=== PATIENT | female | born 1935 | race Caucasian/White ===

== ENCOUNTER 2023-10-19 12:57 | Emergency (ER) | payer OTHER, SELFPAY ==
[2023-10-19 13:00] VITALS: BP 118/62
[2023-10-19] MEDS: NSS 500 IV (14:43)
[2023-10-19 14:57] LABS: % Basophils 1.2 % (0-2); % Eosinophils 1.2 % (0-6); % Immature Granulocytes 0.2 % (0-0.5); % Lymphocytes 23.4 % (20.5-51.1); % Monocytes 8.3 % (1.7-9.3); % Neutrophils 65.7 % (42.2-75.2); Absolute Basophils 0.1 10^3/uL (0-0.2); Absolute Eosinophils 0.1 10^3/uL (0-0.7); Absolute Lymphocytes 1.4 10^3/uL (1.2-3.4); Absolute Monocytes 0.5 10^3/uL (0.1-0.6); Absolute Neutrophils 3.9 10^3/uL (1.4-6.5); Hematocrit 34.8 % (37.0-47.0); Mean Corp Hgb Conc. 34.5 g/dL (33.0-37.0); Mean Corpuscular Hgb 28.3 pg (27.0-31.0); Mean Corpuscular Volume 82.1 fL (81.0-99.0); Mean Platelet Volume 11.9 fL (7.4-10.4); Nucleated Red Blood Cells % 0 %; Platelet Count 208 10^3/uL (130-400); Red Blood Cell Count 4.24 10^6/uL (4.20-5.40); Red Cell Dist. Width 14.9 % (11.5-14.5); White Blood Cell Count 5.9 10^3/uL (4.8-10.8)
[2023-10-19 15:33] LABS: ALT (SGPT) 13 U/L (0-35); AST (SGOT) 29 U/L (14-36); Albumin 3.8 g/dl (3.5-5.0); Alkaline Phosphatase 93 U/L (38-126); Blood Urea Nitrogen 11 mg/dl (7-17); Calcium 9.3 mg/dl (8.4-10.2); Carbon Dioxide 23 mmol/L (22-30); Chloride 107 mmol/L (98-107); Glucose 106 mg/dl (70-99); Potassium 3.3 mmol/L (3.5-5.1); Sodium 139 mmol/L (135-145); eGFR > 60.00
--- NOTE | 2023-10-19 15:39 | ED.GENMED ---
History of Present Illness
General
Chief Complaint: Abdominal Symptoms
Source: patient
Exam Limitations: none
Time Seen by Provider: 10/19/23 14:13
Travel History
Have you had any contact with someone who has COVID-19?: No
Do you have any symptoms of coronavirus? Fever > 100 degrees, chills, cough, shortness of breath, sore throat, loss of taste or smell, muscle aches, or headache?: No
History of Present Illness
History of Present Illness:
Diarrhea for 3 to 4 days. No blood or mucus. No abdominal pain no fever. No unusual travel history or food ingestion. No recent antibiotics. No one else is ill at home. No diarrhea today. She states it only occurs when she eats.
Past History
Past History
ED Past Medical History: Asthma, CAD, Fibromyalgia, GERD, HTN, Hypercholesterolemia and [place]
ED Past Surgical History: Cardiac (Angioplasty with stent ), Cholecystectomy and Gynecological (Hysterectomy and prior tubal ligation )
Social History
Tobacco: Former smoker
Alcohol: None
Living: with family
Employment: Retired
Family History
Family History: Hypertension
Review of Systems
Review of Systems
All Other Systems: Not applicable
Constitutional: Denies fever
Respiratory: Reports no symptoms
Cardiac: Reports no symptoms
Phy Exam
Physical Exam
Physical Exam:
GENERAL: Alert and oriented in no apparent distress
EYE: Orbits normal.
NECK: Supple
CARDIAC: Regular rate and rhythm without any obvious murmurs.
LUNGS: Clear breath sounds,normal
ABDOMEN: Soft, without focal tenderness or distention
NEUROLOGICAL: Alert and oriented , grossly non-focal
SKIN: Warm and dry, no rash or lesion, no discoloration, skin intact.
MUSCULOSKELETAL: No edema,no deformity.Good color
PSYCH: Normal and appropriate interaction.
Course
Orders/Labs/Results
Orders:
Orders
10/19/23 14:30
CBC/With Diff [Complete Blood Count/With Diff] Urgent
10/19/23 14:33
STOOL [C difficile Antigen & Toxins] Urgent
ELVA Source: Feces/Stool
Specimen Description:
Stool Culture Urgent
ELVA Source: Feces/Stool
Specimen Description:
0.9% Sodium Chloride 500 ml [Nss] 500 ml IV BOLUS
10/19/23 15:10
Comprehensive Metabolic Panel Urgent
10/19/23 15:39
Potassium Chloride 10% Elixir [KCl Elixir] 40 meq PO NOW STA
Abnormal Lab Results
10/19/23 10/19/23
14:30 15:10
Hct 34.8 L %
(37.0-47.0)
RDW 14.9 H %
(11.5-14.5)
MPV 11.9 H fL
(7.4-10.4)
Potassium 3.3 L mmol/L
(3.5-5.1)
Glucose 106 H mg/dl
(70-99)
10/19/23 14:30
10/19/23 15:10
Vital Signs
Initial and Last Documented VS:
Initial Vital Signs
Temp Pulse Resp BP Pulse Ox
98.0 F 71 16 118/62 98
10/19/23 13:00 10/19/23 13:00 10/19/23 13:00 10/19/23 13:00 10/19/23 13:00
Last Documented Vital Signs
Temp Pulse Resp BP Pulse Ox
98.0 F 71 16 118/62 98
10/19/23 13:00 10/19/23 13:00 10/19/23 13:00 10/19/23 13:00 10/19/23 14:58
*Pulse Oximetry
Patient hypoxic: no
*Critical Care Note
Total Time (30-74mins, 75-104mins- exclusive of procedures): Not Applicable
Data Reviewed
Review of Other/Old Records Reveals: Labs and Testing
Update Note
Update Note:
No diarrhea here despite eating. Medically stable. Discharged to follow-up
ED Attending Note
-
Portions of this chart may have been created with voice recognition software.� Occasional wrong word or��sound alike� substitutions may have occurred due to the inherent limitations of voice recognition software.
Discharge Plan
Departure
Patient Disposition: Home (Routine Discharge)
Date of Disposition: 10/19/23
Time of Disposition: 16:33
Patient with high blood pressure during this ER visit?: No
Discharge Problem:
Diarrhea/resolved, Mild hypokalemia
Instructions: Diarrhea in teens and adults, Hypokalemia
Prescriptions:
No Action
aspirin 81 MG tablet,delayed release (DR/EC)
81 mg PO HS
lorazepam 1 MG tablet
1 mg PO HS
acetaminophen [Tylenol Extra Strength] 500 MG tablet
1,000 mg PO PRN PRN (Reason: pain)
lorazepam 1 MG tablet
1 mg PO Q4HPRN PRN (Reason: anxiety)
Bentyl
2 tab PO PRN PRN (Reason: abd discomfort)
Patient Comments:
pt does not know dose
pantoprazole 40 MG tablet,delayed release (DR/EC)
40 mg PO DAILY
gabapentin 100 MG capsule
100 mg PO TID Qty: 30 0RF
Ativan
1 mg PO TID PRN (Reason: anxiety)
Cymbalta
30 mg PO DAILY
Lasix
40 mg PO DAILY
Mirapex
0.25 mg PO DAILY
Toprol XL
25 mg PO DAILY
Zocor
30 mg PO DAILY
hydrocodone-acetaminophen 5-300 mg tablet
1 tab PO Q8H PRN (Reason: Pain) Qty: 9 0RF
Referrals:
Sierra Hester DO [Family Provider] - Follow up in 2-3 days
Interventions
Interventions:
*Risk Screen - Suicide Last Done: 10/19/23 14:57
*Neglect/Abuse Screening Last Done: 10/19/23 14:57
ED- Fall Risk Assessment Last Done: 10/19/23 14:57
*ED COVID-19 Vaccine History Last Done: 10/19/23 13:03
YD-Ihdqbc-Eayszaernm Assessment Last Done: 10/19/23 14:57
Discharge Date and Time
Print Language: [place] ISLAND[place]
[2023-10-19] MEDS: KCL ELIXIR 40 MEQ PO (16:23)
[2023-10-19 16:34] VITALS: BP 116/74
== END 2023-10-19 17:08 | disposition home or self-care (01) ==
LOC: EMR 12:57
PROVIDERS: EMERGENCY PHYSICIAN Emergency Medicine; FAMILY PHYSICIAN Family Medicine
DX: E87.6 Hypokalemia (principal); R19.7 Diarrhea, unspecified; I25.10 Atherosclerotic heart disease of native coronary artery without angina pectoris; I10 Essential (primary) hypertension; E78.00 Pure hypercholesterolemia, unspecified; J45.909 Unspecified asthma, uncomplicated; M79.7 Fibromyalgia; K21.9 Gastro-esophageal reflux disease without esophagitis; Z95.5 Presence of coronary angioplasty implant and graft; Z87.891 Personal history of nicotine dependence; Z79.82 Long term (current) use of aspirin; Z90.49 Acquired absence of other specified parts of digestive tract; Z88.6 Allergy status to analgesic agent; Z91.041 Radiographic dye allergy status; Z88.5 Allergy status to narcotic agent; Z88.8 Allergy status to other drugs, medicaments and biological substances; Z91.048 Other nonmedicinal substance allergy status
CPT/HCPCS: 99284; 96360; 80053; 85025

== ENCOUNTER → 2024-01-27 14:11 | Outpatient (REF) | payer OTHER, SELFPAY | LOC: RCS 14:11 | PROVIDERS: ATTENDING PHYSICIAN Internal Medicine Cardiovascular Disease; FAMILY PHYSICIAN Family Medicine | DX: R01.1 Cardiac murmur, unspecified (principal) | CPT/HCPCS: 93306 ==

== ENCOUNTER 2024-04-24 23:44 | Inpatient (IN) | payer OTHER, SELFPAY ==
[2024-04-24] VITALS (9 sets, daily range): BP systolic 103–124; BP diastolic 51–76
[2024-04-24 13:10] LABS: % Basophils 0.8 % (0-2); % Eosinophils 1.3 % (0-6); % Immature Granulocytes 0.2 % (0-0.5); % Lymphocytes 12.6 % (20.5-51.1); % Monocytes 6.4 % (1.7-9.3); % Neutrophils 78.7 % (42.2-75.2); Absolute Basophils 0.1 10^3/uL (0-0.2); Absolute Eosinophils 0.1 10^3/uL (0-0.7); Absolute Lymphocytes 1.2 10^3/uL (1.2-3.4); Absolute Monocytes 0.6 10^3/uL (0.1-0.6); Absolute Neutrophils 7.2 10^3/uL (1.4-6.5); Hemoglobin 12.6 g/dL (12.0-16.0); Mean Corp Hgb Conc. 33.2 g/dL (33.0-37.0); Mean Corpuscular Volume 87.4 fL (81.0-99.0); Mean Platelet Volume 10.7 fL (7.4-10.4); Nucleated Red Blood Cells % 0 %; Platelet Count 184 10^3/uL (130-400); Red Blood Cell Count 4.35 10^6/uL (4.20-5.40); Red Cell Dist. Width 13.9 % (11.5-14.5); White Blood Cell Count 9.1 10^3/uL (4.8-10.8)
[2024-04-24 13:25] LABS: ALT (SGPT) 14 U/L (0-35); AST (SGOT) 19 U/L (14-36); Albumin 3.9 g/dl (3.5-5.0); Alkaline Phosphatase 102 U/L (38-126); Blood Urea Nitrogen 11 mg/dl (7-17); Calcium 9.3 mg/dl (8.4-10.2); Carbon Dioxide 25 mmol/L (22-30); Chloride 104 mmol/L (98-107); Glucose 106 mg/dl (70-99); Lipase 127 U/L (23-300); Potassium 4.3 mmol/L (3.5-5.1); Sodium 137 mmol/L (135-145); Total Bilirubin 0.9 mg/dl (0.2-1.3); eGFR > 60.00
[2024-04-24] MEDS: OMNIPAQUE 50 ML PO (15:33)
[2024-04-24] MEDS: NSS 1000 IV (15:34)
[2024-04-24] MEDS: ZOFRAN 4 MG IV (15:34)
[2024-04-24] MEDS: SOLU-CORTEF 200 MG IV (16:22)
[2024-04-24] MEDS: BENADRYL 50 MG IV (16:22)
[2024-04-24 19:07] LABS: Urine Albumin Negative (Neg - Trace); Urine Bilirubin Negative (Negative); Urine Character Clear (Clear); Urine Color Straw; Urine Glucose Negative (Negative); Urine Ketone Negative (Negative); Urine Leukocyte Trace (Negative); Urine Nitrite Negative (Negative); Urine Occult Blood Negative (Negative); Urine Urobilinogen Negative (Neg - 1+)
[2024-04-24 19:20] LABS: Urine Squamous Cell 16-20 /LPF (Few)
[2024-04-24 19:21] LABS: Urine Red Blood Cell 0-2 /HPF (0-2)
--- NOTE | 2024-04-24 20:18 | ED.GENMED ---
History of Present Illness
General
Chief Complaint: Abdominal Pain
Source: patient
Exam Limitations: none
Time Seen by Provider: 04/24/24 15:12
Nursing documentation reviewed up to this point in time: agreed with
History of Present Illness
History of Present Illness:
Patient to ED with complaint of lower abd pain. States she has had intermittent pain for the past few months but over the past few days pain has become steady. Today she was unable to eat due to pain. Reports diarrhea, denies n/v. No
fever/chills. To ED via EMS for eval
Past History
Past History
ED Past Medical History: Asthma, CAD, Fibromyalgia, GERD, HTN, Hypercholesterolemia and [place]
ED Past Surgical History: Cardiac (Angioplasty with stent ), Cholecystectomy and Gynecological (Hysterectomy and prior tubal ligation )
Social History
Tobacco: Former smoker
Alcohol: None
Living: with family
Employment: Retired
Family History
Family History: Hypertension
Review of Systems
Review of Systems
Allergies reviewed?: Yes
All Other Systems: ROS reviewed and negative except as documented in HPI and ROS
Constitutional: Reports no symptoms
EENT: Reports no symptoms
Respiratory: Reports no symptoms
Cardiac: Reports no symptoms
ABD/GI: Reports abdominal pain (lower abd. pain), diarrhea and anorexia
: Reports no symptoms
Musculoskeletal: Reports no symptoms
Skin: Reports no symptoms
Neurological: Reports no symptoms
Psychiatric: Reports no symptoms
Phy Exam
General Physical Exam
General Presentation: well appearing and no apparent distress
General age: appears stated age
General Skin: warm and dry
General Habitus: normal
Cardiovascular Exam
Cardiovascular Exam: regular rate/rhythm
Pulmonary Exam
Pulmonary Exam: lungs clear and no respiratory distress
Gastrointestinal Exam
Gastrointestinal Exam: normal bowel sounds, soft, no organomegaly, non distended and no cva tenderness
Palpation: left upper quadrant: No tenderness, left lower quadrant: Moderate tenderness, right upper quadrant: No tenderness and right lower quadrant: Moderate tenderness
Musculoskeletal Exam
Musculoskeletal Exam: full ROM and neuro vasc intact
Skin Exam
Skin Exam: normal color, warm/dry and no rash
Psychiatric Exam
Psychiatric Exam: normal mood/affect
Course
Orders/Labs/Results
Orders:
Orders
04/24/24 13:01
Complete Blood Count/With Diff Urgent
Comprehensive Metabolic Panel Urgent
Lipase Urgent
04/24/24 15:21
0.9% Sodium Chloride 1000 ml [Nss] 1,000 ml IV BOLUS
Ondansetron Injectable [Zofran] 4 mg IV NOW STA
04/24/24 15:22
CT Abd/pel W Iv And Oral Contr Urgent
Comment:
Reason For Exam: lower abd. pain
Iohexol [Omnipaque] See Protocol PO NOW STA
04/24/24 15:23
Hydrocortisone Sod Succinate [Solu-Cortef] 200 mg IV NOW STA
04/24/24 16:15
Diphenhydramine [Benadryl] 50 mg IV NOW STA
04/24/24 18:59
Urinalysis Reflex To Culture Urgent
Date Specimen was Collected: 04/24/24
Time Specimen was Collected: 15:26
Urine Microscopic Reflex Cult Urgent
04/24/24 20:57
Piperacillin/Tazo 3.375 Gram [Zosyn] 3.375 gram in 50 ml IV NOW
04/24/24 20:58
ColoRectal Surgery Consult Urgent
Consulting Provider: Luis Prince
Was physician already notified: Yes
Abnormal Lab Results
04/24/24 04/24/24
13:01 18:59
MPV 10.7 H fL
(7.4-10.4)
Absolute Neuts (auto) 7.2 H 10^3/uL
(1.4-6.5)
Neutrophils % 78.7 H %
(42.2-75.2)
Lymphocytes % 12.6 L %
(20.5-51.1)
Glucose 106 H mg/dl
(70-99)
Leukocyte Esterase Rfl Trace A
(Negative)
04/24/24 13:01
04/24/24 13:01
Vital Signs
Initial and Last Documented VS:
Initial Vital Signs
Temp Pulse Resp BP Pulse Ox
98.3 F 82 16 107/58 98
04/24/24 12:55 04/24/24 12:55 04/24/24 12:55 04/24/24 12:55 04/24/24 12:55
Last Documented Vital Signs
Temp Pulse Resp BP Pulse Ox
98.3 F 82 16 115/63 98
04/24/24 12:55 04/24/24 12:55 04/24/24 12:55 04/24/24 17:00 04/24/24 17:45
*Radiology
Radiology exam reviewed: radiology read reviewed
*Pulse Oximetry
Patient hypoxic: no
*Critical Care Note
Total Time (30-74mins, 75-104mins- exclusive of procedures): Not Applicable
Update Note
Update Note:
Patient to ED with lower abdominal pain. No fever/chills. + diarrhea. CT tonight: Sigmoid diverticulitis. Low density in involved segment - edema vs intramural abscess. Dr Prince notified of findings. Patient to be admitted to hospitalist
service with colorectal consult. Satish started in dept. Discussed findings with patient. SHe is agreeable to plan.
ED Attending Note
-
Portions of this chart may have been created with voice recognition software.� Occasional wrong word or��sound alike� substitutions may have occurred due to the inherent limitations of voice recognition software.
Discharge Plan
Departure
Patient Disposition: Admit
Date of Disposition: 04/24/24
Time of Disposition: 20:55
Presentation/result/management discussed w/ accepting /DO: Hospitalist
Condition: Fair
Covid-19: Not Applicable
Discharge Problem:
Diverticulitis, Colonic diverticular abscess
Prescriptions:
No Action
aspirin 81 MG tablet,delayed release (DR/EC)
81 mg PO HS
lorazepam 1 MG tablet
1 mg PO HS
acetaminophen [Tylenol Extra Strength] 500 MG tablet
1,000 mg PO PRN PRN (Reason: pain)
lorazepam 1 MG tablet
1 mg PO Q4HPRN PRN (Reason: anxiety)
Bentyl
2 tab PO PRN PRN (Reason: abd discomfort)
Patient Comments:
pt does not know dose
pantoprazole 40 MG tablet,delayed release (DR/EC)
40 mg PO DAILY
gabapentin 100 MG capsule
100 mg PO TID Qty: 30 0RF
Ativan
1 mg PO TID PRN (Reason: anxiety)
Cymbalta
30 mg PO DAILY
Lasix
40 mg PO DAILY
Mirapex
0.25 mg PO DAILY
Toprol XL
25 mg PO DAILY
Zocor
30 mg PO DAILY
hydrocodone-acetaminophen 5-300 mg tablet
1 tab PO Q8H PRN (Reason: Pain) Qty: 9 0RF
Referrals:
Sierra Hester DO [Family Provider] -
Interventions
Interventions:
*Risk Screen - Suicide Last Done: 04/24/24 12:55
*General Assessment Last Done: 04/24/24 12:55
*Neglect/Abuse Screening Last Done: 04/24/24 12:55
ED- Fall Risk Assessment Last Done: 04/24/24 14:08
*ED COVID-19 Vaccine History Last Done: 04/24/24 14:08
TE-Tpmraw-Hlhzdvyrek Assessment Last Done: 04/24/24 19:40
Discharge Date and Time
Print Language: ARABIC
[2024-04-24] MEDS: ZOSYN 50 IV (21:19)
[2024-04-24] MEDS: FLUSH (NSS) 1 FLUSH IV (21:22)
--- NOTE | 2024-04-24 21:33 | PHANOTE ---
med rec tech(04/24/24)-Spoke with daughter who helps manage medications, per daughter patient is not compliant with her Lasix, does not take it due to side effects.
--- NOTE | 2024-04-24 23:17 | HPS.HSE ---
Family Physician
-
Family Physician: Sierra Hester
Chief Complaint
-
Abdominal pain
History of Present Illness
This is a 88-year-old who has a past medical history significant for prior diverticulitis, hyperlipidemia and restless leg syndrome who presents to the emergency department with subacute episode of abdominal discomfort.
Patient and family reports that she has had abdominal discomfort for several weeks now. She reports bilateral lower quadrant abdominal pain without radiation. It is associated with nausea. She denies vomiting. She denies diarrhea. She denies
bloody bowel movement. She denies history of mucousy bowel movement. Patient is able to tolerate p.o. but has had reduced appetite without weight loss. She denies any recent hospitalizations. She denies any recent antibiotic use. She has no
known sick contacts or recent travels.
In the emergency department she was afebrile, blood pressure was normal at 114/76 with a pulse of 86. She reports she was satting at 7% on room air. She had a normal CBC. Likewise electrolytes BUN/creatinine as well as LFTs were within normal
limits. CT of the abdomen pelvis showed 7 cm length distal sigmoid diverticulitis with components of the involved region that is concerning for edema or possible intra-mural abscess
Medical History
Past Medical History
Past Medical History: Reports Hypercholesterolemia and Psychiatric (anxiety)
Additional Past Medical History:
h/o diverticulitis
Past Surgical History: Reports Cholecystectomy and Orthopedic (back surgery)
Social History
Tobacco: Former Smoker
Alcohol: None
Drug: None
Living: With Family
Employment: Retired
Family History
Family History: Not pertinent
Allergies / Home Medications
Allergies reflects when Allergies were last updated in [facility].
Home Medications with original date entered in [facility]
Allergy/Medication List:
Allergies
Allergy/AdvReac Type Severity Reaction Status Date / Time
aspartame [Aspartame] Allergy severe Verified 04/24/24 12:55
headache,stomach
cramps,vomiting,diarrhea
codeine Allergy nausea,severe Verified 04/24/24 12:55
headache
Iodinated Contrast Media Allergy Unknown Verified 04/24/24 12:55
[IV Dye, Iodine Containing]
mold extracts [Mold Extracts] Allergy Unknown Verified 04/24/24 12:55
morphine Allergy Hives,SWELL Verified 04/24/24 12:55
ING
NSAIDS (Non-Steroidal Allergy Unknown Verified 04/24/24 12:55
Anti-Inflamma
promethazine HCl Allergy Unknown Verified 04/24/24 12:55
[From Phenergan]
saccharin [Saccharin] Allergy severe Verified 04/24/24 12:55
headache,stomach
cramps,vomiting,diarrhea
Salicylates * Allergy Unknown Verified 04/24/24 12:55
bupropion HCl AdvReac Unknown Verified 04/24/24 12:55
[From Wellbutrin]
DUST Allergy Unknown Uncoded 04/24/24 12:55
Home Medications
acetaminophen 500 mg tablet (Tylenol Extra Strength) 500 mg PO BID 01/30/11
dicyclomine 20 mg tablet 20 mg PO QIDPRN PRN abd discomfort 01/30/11
lorazepam 1 mg tablet 1 mg PO DAILYPRN PRN anxiety 01/30/11
pantoprazole 40 mg tablet,delayed release 40 mg PO DAILY 07/08/12
duloxetine 20 mg capsule,delayed release 40 mg PO DAILY 03/11/23
pramipexole 0.25 mg tablet 0.25 mg PO TIDPRN PRN restless leg 03/11/23
simvastatin 40 mg tablet 40 mg PO HS 03/11/23
gabapentin 400 mg capsule 400 mg PO TID 04/24/24
Review of Systems
-
Constitutional: Reports No Symptoms
EENT: Reports No Symptoms
Respiratory: Reports No Symptoms
Cardiac: Reports No Symptoms
Abdomen/GI: Reports Abdominal Pain and Nausea
: Reports No Symptoms
Musculoskeletal: Reports No Symptoms
Skin: Reports No Symptoms
Neurological: Reports No Symptoms
Endocrine: Reports No Symptoms
Hematologic/Lymphatic: Reports No Symptoms
Psych: Reports No Symptoms
Physical Exam
Vital Signs
Vital Signs
Temp Pulse Resp BP Pulse Ox
98.3 F 86 16 124/76 97
04/24/24 12:55 04/24/24 21:30 04/24/24 12:55 04/24/24 21:07 04/24/24 21:30
Physical Exam
General: Well Developed, No Apparent Distress and Conversant
HEENT: NormoCephalic, Anicteric and Atraumatic
Respiratory: Clear
Cardiac: S1/S2 and Regular Rhythm
GI: Soft, Non Distended, Normal Bowel Sounds and Tender
Rectal: Deferred by Provider
Genito-urinary: Deferred by me
Musculoskeletal: No Clubbing and No Cyanosis
Skin: Warm
Neuro: AO x 3
Psych: Calm
Laboratory Results
-
04/24/24 13:01
04/24/24 13:01
Laboratory Results
Total Bilirubin 0.9 mg/dl (0.2-1.3) 04/24/24 13:01
AST 19 U/L (14-36) 04/24/24 13:01
ALT 14 U/L (0-35) 04/24/24 13:01
Alkaline Phosphatase 102 U/L (38-126) 04/24/24 13:01
Lipase 127 U/L (23-300) 04/24/24 13:01
Data Reviewed
-
CT Scan: Report Reviewed by me
Lab Data: Labs Reviewed by me
Old Records: Reviewed
Impression/Plan
-
IMPRESSION:
88-year-old with history of recurrent diverticulitis in the past presents with subacute abdominal pain for several weeks now and found to have sigmoid diverticulitis with possible intramural abscess or edema in the involved region. She is
well-appearing, nontoxic hemodynamically stable and in no acute distress. Labs are unremarkable.
PLAN:
1. Diverticulitis w/ possible intramural abscess
- admit to med/surg
- NPO for now, advance to clears in am
- iv fluids
- agree with zosyn given possible abscess
- serial examination
- surgery consulted and aware
Will continue ppi for GERD and her oral gabapentin and duloxetine.
DVT PPX - lovenox sq
Code status - full code
[2024-04-25 01:00] VITALS: BP 102/52
[2024-04-25 01:45] VITALS: BP 115/56; BMI 23.9
[2024-04-25] MEDS: LR 1000 IV ×2 (02:34→17:55)
[2024-04-25] MEDS: ZOSYN 50 IV ×4 (03:04→21:19)
--- NOTE | 2024-04-25 03:35 | PTCARENOTE ---
Receive pt from ER. Pt alert oriented X3, calm, in no distress. Pt assist X1 w/RW, feels weak. Pt oriented to the room, call don within reach. VSS (T=*97.4, HR= 86, RR=20, KX=086/56, SpO2=99% on RA). Pt offers no complaint of abd pain, nausea, or
SOB. IVFs infusing as per order. Will continue to monitor the pt.
[2024-04-25 07:35] VITALS: BP 104/45
[2024-04-25 07:49] LABS: Hematocrit 34.6 % (37.0-47.0); Hemoglobin 11.2 g/dL (12.0-16.0); Mean Corp Hgb Conc. 32.4 g/dL (33.0-37.0); Mean Corpuscular Hgb 29.1 pg (27.0-31.0); Mean Corpuscular Volume 89.9 fL (81.0-99.0); Mean Platelet Volume 11.3 fL (7.4-10.4); Platelet Count 177 10^3/uL (130-400); Red Blood Cell Count 3.85 10^6/uL (4.20-5.40); Red Cell Dist. Width 13.8 % (11.5-14.5); White Blood Cell Count 8.1 10^3/uL (4.8-10.8)
[2024-04-25 08:00] LABS: Blood Urea Nitrogen 11 mg/dl (7-17); Calcium 8.9 mg/dl (8.4-10.2); Carbon Dioxide 25 mmol/L (22-30); Chloride 104 mmol/L (98-107); Estimated Creatinine Clearance 49 ml/min; Glucose 106 mg/dl (70-99); Sodium 136 mmol/L (135-145); eGFR > 60.00
[2024-04-25] MEDS: PROTONIX 40 MG PO (09:24)
[2024-04-25] MEDS: NEURONTIN 400 MG PO ×3 (09:24→21:19)
[2024-04-25] MEDS: CYMBALTA DELAYED RELEASE 40 MG PO (09:24)
--- NOTE | 2024-04-25 11:34 | CON.CRS ---
Addendum entered and electronically signed by Luis Prince MD 04/25/24 13:03:
Patient seen and examined. Agree with assessment plan as documented.
Patient is a 88 yo F with a PMH of GERD/PUD, HTN, HLD, CAD c/b PR s/p PCI with stenting 2006, IBS, fibromyalgia, s/p laparoscopic cholecystectomy, and s/p open RICH and appendectomy. Ms. Eric reports a longstanding history of uncomplicated
diverticulitis. She states that she has had over 10 episodes throughout the years. She has not had an attack in the past several years. She reports a mild suprapubic discomfort over the past several weeks. Over the past 24 to 48 hours she has
had worsening acute discomfort prompting presentation to the ED. Currently she states that her symptoms are significantly improved and almost resolved. No fevers or chills. No nausea or vomiting. Passing flatus and nonbloody, formed stools.
Family history notable for colon cancer. Her last colonoscopy was in 2007 and was notable for several small subcentimeter tubular adenomas in the cecum, transverse colon, and sigmoid (of note, no comment on diverticulosis at that time).
Gen: NAD
Abd: soft, NT/ND, non-peritoneal
Labs and CT scan imaging were reviewed
Patient is a 88 yo F p/w acute diverticulitis
The natural history and pathophysiology of diverticulitis was briefly reviewed. CT scan imaging was reviewed. Clinically stable with little to no pain, afebrile, and normal WBC. Recommended plan for medical management. Continue with IV
antibiotics while in the hospital and transition to oral antibiotics on discharge. Dietary advancement over the next 24 hours. Of note, some consideration should be given to the possibility of a malignant process given her age, family history, CT
scan findings, and lack of diverticulosis with polyps on prior colonoscopies. It might be worthwhile for outpatient GI follow-up for colonoscopy. All questions answered.
-- No plans for surgical intervention at this time
-- Clears ADAT to LRD
-- Abx: Zosyn
-- Outpatient follow-up with GI/colonoscopy
Original Note:
Consultation
-
Date/Time Consultation Requested: 04/24/242057
Requesting Provider: Chelsea
Medical History
-
Chief Complaint: abdominal pain
History of Present Illness:
Ms Eric is an 88 yo female with a pmh of CAD with 2 PR's s/p stent placement, PUD, RICH, appendectomy (? at time of RICH), cholecystectomy and multiple bouts of diverticulitis although, her last bout was about 10 years ago with last colonoscopy in
2007. She presents this admission with smouldering discomfort to her lower abdomen over the past several weeks which was initially mild but acutely worsened causing her to present for evaluation. She denies nausea, vomiting, diarrhea or
constipation. She reports she is passing normal BM's and flatus without hematochezia noted. She denies fevers or chills. She notes poor appetite over the past few weeks. On exam, she is mildly tender to the lower abdomen without significant
distention present.
Past Medical History
Past Medical History: CAD, Diverticulitis (>10 times), GERD, HTN, Hypercholesterolemia and Other (IBS, Fibromyalgia)
Past Surgical History: Appendectomy, Cardiac (stents 2006), Cholecystectomy, Gynecological (RICH) and Orthopedic (BL carpal tunnel)
Social History
Tobacco: Former Smoker
Alcohol: None
Family History
Family History: Reviewed & Not Pertinent
Allergies / Home Medications
Allergy/AdvReac Type Severity Reaction Status Date / Time
aspartame [Aspartame] Allergy severe Verified 04/24/24 12:55
headache,stomach
cramps,vomiting,diarrhea
codeine Allergy nausea,severe Verified 04/24/24 12:55
headache
Iodinated Contrast Media Allergy Unknown Verified 04/24/24 12:55
[IV Dye, Iodine Containing]
mold extracts [Mold Extracts] Allergy Unknown Verified 04/24/24 12:55
morphine Allergy HivesSWELL Verified 04/24/24 12:55
ING
NSAIDS (Non-Steroidal Allergy Unknown Verified 04/24/24 12:55
Anti-Inflamma
promethazine HCl Allergy Unknown Verified 04/24/24 12:55
[From Phenergan]
saccharin [Saccharin] Allergy severe Verified 04/24/24 12:55
headache,stomach
cramps,vomiting,diarrhea
Salicylates * Allergy Unknown Verified 04/24/24 12:55
bupropion HCl AdvReac Unknown Verified 04/24/24 12:55
[From Wellbutrin]
DUST Allergy Unknown Uncoded 04/24/24 12:55
�Medication �Instructions �Recorded �Confirmed �Type
acetaminophen 500 mg tablet 500 mg PO BID Pain 01/30/11 04/24/24 History
(Tylenol Extra Strength)
dicyclomine 20 mg tablet 20 mg PO QIDPRN PRN abd discomfort 01/30/11 04/24/24 History
lorazepam 1 mg tablet 1 mg PO DAILYPRN PRN anxiety 01/30/11 04/24/24 History
pantoprazole 40 mg tablet,delayed 40 mg PO DAILY Gastrointestinal 07/08/12 04/24/24 History
release Issue
duloxetine 20 mg capsule,delayed 40 mg PO DAILY 03/11/23 04/24/24 History
release
pramipexole 0.25 mg tablet 0.25 mg PO TIDPRN PRN restless leg 03/11/23 04/24/24 History
simvastatin 40 mg tablet 40 mg PO HS High Cholesterol 03/11/23 04/24/24 History
gabapentin 400 mg capsule 400 mg PO TID 04/24/24 04/24/24 History
Review of Systems
-
History Source: Patient
All other systems: Negative unless noted
A 10 point review of systems was completed, and was negative except as per HPI.
Physical Exam
Vital Signs
Temp 98.3 F 04/25/24 07:35
Pulse 73 04/25/24 07:35
Resp Rate 18 04/25/24 07:35
Blood pressure 104/45 04/25/24 07:35
SaO2 93 04/25/24 09:00
04/24/24 04/25/24 04/26/24
06:59 06:59 06:59
Actual Weight 69.144 kg
Body Mass Index (BMI) 23.9
Lab Results / Allergies
04/25/24 06:50
04/25/24 06:50
WBC 8.1 10^3/uL (4.8-10.8) 04/25/24 06:50
Hgb 11.2 g/dL (12.0-16.0) L 04/25/24 06:50
Hct 34.6 % (37.0-47.0) L 04/25/24 06:50
Plt Count 177 10^3/uL (130-400) 04/25/24 06:50
Abs Immat Gran (auto) 0.0 10^3/uL (0-0.05) 04/24/24 13:01
Neutrophils % 78.7 % (42.2-75.2) H 04/24/24 13:01
Allergy/AdvReac Type Severity Reaction Status Date / Time
aspartame [Aspartame] Allergy severe Verified 04/24/24 12:55
headache,stomach
cramps,vomiting,diarrhea
codeine Allergy nausea,severe Verified 04/24/24 12:55
headache
Iodinated Contrast Media Allergy Unknown Verified 04/24/24 12:55
[IV Dye, Iodine Containing]
mold extracts [Mold Extracts] Allergy Unknown Verified 04/24/24 12:55
morphine Allergy Hives,SWELL Verified 04/24/24 12:55
ING
NSAIDS (Non-Steroidal Allergy Unknown Verified 04/24/24 12:55
Anti-Inflamma
promethazine HCl Allergy Unknown Verified 04/24/24 12:55
[From Phenergan]
saccharin [Saccharin] Allergy severe Verified 04/24/24 12:55
headache,stomach
cramps,vomiting,diarrhea
Salicylates * Allergy Unknown Verified 04/24/24 12:55
bupropion HCl AdvReac Unknown Verified 04/24/24 12:55
[From Wellbutrin]
DUST Allergy Unknown Uncoded 04/24/24 12:55
Physical Exam
General: Well Developed and Well Nourished
HEENT: Moist Mucous Membranes
Respiratory: Non Labored Respirations
GI: Soft, Non Distended and Tender (mild to lower abdomen)
Skin: Warm and Dry
Neuro: Awake and Alert
Psych: Calm
Data Reviewed
-
CT Scan: Image Personally Visualized and interpreted, Report Reviewed by me, Discussed with Physician and Discussed with Patient
Labs: Labs Reviewed by me, Discussed with Physician and Discussed with Patient
Old Records: Reviewed
Assessment / Plan
-
Ms Eric is an 88 yo female with a pmh of CAD with 2 PR's s/p stent placement, PUD, RICH, appendectomy (? at time of RICH), cholecystectomy and multiple bouts of diverticulitis although, her last bout was about 10 years ago presenting with several
weeks of lower abdominal pain which has worsened over the past few days. CT imaging reviewed with distal sigmoid diverticulitis noted without abscess or evidence of perforation. On exam, she is minimally tender and notes improvement in pain since
initiation of abx yesterday. Afebrile with stable vital signs. No leukocytosis present.
--Continue clear liquid diet
--Continue IV ABX
--Analgesics prn
--IVF as per primary team
No plans for emergent surgery at this time, will follow for continued improvement with medical management (Bowel rest, abx, etc)
--- NOTE | 2024-04-25 11:59 | W.PN.HOSP.TC ---
Today's Communication/Plan
-
Continue n.p.o. IV fluids
Continue with Zosyn
Await surgical input
Assessment / Plan
Assessment / Plan
88-year-old with history of recurrent diverticulitis in the past presents with subacute abdominal pain for several weeks now and found to have sigmoid diverticulitis with possible intramural abscess or edema in the involved region. She is
well-appearing, nontoxic hemodynamically stable and in no acute distress. Labs are unremarkable.
PLAN:
1. Acute diverticulitis w/ possible intramural abscess
- NPO for now, advance diet per surgery
- iv fluids
-Continue with zosyn given possible abscess
- serial examination
- surgery consulted and aware
Will continue ppi for GERD and her oral gabapentin and duloxetine.
DVT PPX - lovenox sq
Code status - full code
Anticipated Discharge: > 48 hours
Subjective/Interval History
-
Date of Service: April 25, 2024
Mild to moderate abdominal pain. She is having loose stools today. No vomiting. Some nausea. No fever chills.
Objective Data
-
Labs:
Laboratory Results
04/25/24
06:50
WBC 8.1
Hgb 11.2 L
Hct 34.6 L
Plt Count 177
Sodium 136
Potassium 4.0
Chloride 104
Carbon Dioxide 25
BUN 11
Creatinine 0.8
Glucose 106 H
Calcium 8.9
Vital Signs:
Vital Signs
Temp Pulse Resp BP Pulse Ox
98.3 F 73 18 104/45 93
04/25/24 07:35 04/25/24 07:35 04/25/24 07:35 04/25/24 07:35 04/25/24 09:00
I&O
04/24/24 04/25/24 04/26/24
06:59 06:59 06:59
Intake Total 50 / 50
Balance 50 / 50
Review of Systems
-
Respiratory: Denies Trouble Breathing
Cardiac: Denies Chest Pain
Neuro: Denies Dizzy
Physical Exam
-
General: No Apparent Distress
Respiratory: Non Labored Respirations; Negative Accessory Resp Muscle Use
Cardiac: Regular Rhythm and S1/S2
GI: Soft, Nondistended, Normal Bowel Sounds and Tender (Left lower quadrant without rebound or guarding)
Neuro: AO x 3
Data Reviewed
-
Labs: Labs Reviewed by me
[2024-04-25] MEDS: IMODIUM 2 MG PO (14:46)
--- NOTE | 2024-04-25 15:00 | PTCARENOTE ---
Pt had 3 episodes of loose/liquid stool today, bowel incontinence as well. Pt states that she does get diarrhea at home at times. Pt does have hx of C.Diff. Discussed with Dr. Clifton and he ordered r/o C.Diff. Obtained specimen and negative for
C.Diff. Imodium PRN ordered for Diarrhea. Updated pt on plan.
[2024-04-25 15:20] VITALS: BP 106/58
[2024-04-25] MEDS: LOVENOX 40 MG SC (17:55)
[2024-04-25] MEDS: LIPITOR 20 MG PO (21:19)
[2024-04-25 23:29] VITALS: BP 110/50
[2024-04-26] MEDS: ZOSYN 50 IV ×4 (03:30→21:38)
[2024-04-26] MEDS: LR 1000 IV (05:02)
[2024-04-26 07:35] VITALS: BP 134/68
[2024-04-26] MEDS: PROTONIX 40 MG PO (08:21)
[2024-04-26] MEDS: NEURONTIN 400 MG PO ×3 (08:21→21:38)
[2024-04-26] MEDS: CYMBALTA DELAYED RELEASE 40 MG PO (08:21)
[2024-04-26 09:11] LABS: Hemoglobin 10.8 g/dL (12.0-16.0); Mean Corp Hgb Conc. 32.7 g/dL (33.0-37.0); Mean Corpuscular Volume 88.5 fL (81.0-99.0); Mean Platelet Volume 10.6 fL (7.4-10.4); Platelet Count 164 10^3/uL (130-400); Red Blood Cell Count 3.73 10^6/uL (4.20-5.40); White Blood Cell Count 5.1 10^3/uL (4.8-10.8)
--- NOTE | 2024-04-26 10:07 | W.PN.GS2 ---
Addendum entered and electronically signed by Luis Prince MD 04/26/24 10:24:
Patient seen and examined. Agree with assessment plan as documented below.
No complaints. Denies any abdominal pain. No nausea or vomiting. Passing flatus and loose stools. Somewhat worried and bothered by the loose/liquid nature of her stools and potential incontinence. She does have occasional chronic issues with
this.
Gen: NAD
Abd: soft, NT/ND, non-peritoneal
Patient is a 88 yo F p/w acute diverticulitis
AFVSS
+ bowel function with diarrhea
Tolerating liquids
--Advance to LRD
--Continue abx, will need 7 days on DC
--Will need outpatient follow up with GI for colonoscopy
--OK to DC when tolerating diet from surgical standpoint
--Please call with any questions or concerns
Original Note:
Today's Communication / Plan
-
LRD
Assessment / Plan
-
88 yo F p/w acute diverticulitis
AFVSS
+ bowel function with diarrhea
Tolerating liquids
--Advance to LRD
--Continue abx
--Will need outpatient follow up with GI for colonoscopy
Subjective Data
-
Date of Service: April 26, 2024
Patient seen and examined at bedside with Dr. Prince. Denies n/v. Tolerating diet. Passing multiple loose stools and flatus. Abdominal pain resolved.
Objective Data
-
Intake and Output
04/25/24 04/26/24 04/27/24
06:59 06:59 06:59
Intake Total 50 / 50 3120 / 3120
Balance 50 / 50 3120 / 3120
Intake:
Oral fluids 720 / 720
IV fluids (Total) 0 / 2199
IV piggybacks 50 / 50 200 / 200
Other:
Number of approximated MODERATE 1 3 1
amounts of urine
Vital Signs
Temp Pulse Resp BP Pulse Ox
97.9 F 58 16 110/50 98
04/25/24 23:29 04/25/24 23:29 04/25/24 23:29 04/25/24 23:29 04/25/24 23:29
Lab Results
04/26/24 08:56
04/25/24 06:50
Calcium 8.9 mg/dl (8.4-10.2) 04/25/24 06:50
Total Bilirubin 0.9 mg/dl (0.2-1.3) 04/24/24 13:01
AST 19 U/L (14-36) 04/24/24 13:01
ALT 14 U/L (0-35) 04/24/24 13:01
Alkaline Phosphatase 102 U/L (38-126) 04/24/24 13:01
Total Protein 7.0 g/dl (6.3-8.2) 04/24/24 13:01
Albumin 3.9 g/dl (3.5-5.0) 04/24/24 13:01
Physical Exam
-
NAD
ABD soft, nt, nd
[2024-04-26] MEDS: LR IV (10:15)
--- NOTE | 2024-04-26 14:41 | W.PN.HOSP.TC ---
Today's Communication/Plan
-
Advance diet
PT eval
DC planning
Assessment / Plan
Assessment / Plan
88-year-old with history of recurrent diverticulitis in the past presents with subacute abdominal pain for several weeks now and found to have sigmoid diverticulitis with possible intramural abscess or edema in the involved region. She is
well-appearing, nontoxic hemodynamically stable and in no acute distress. Labs are unremarkable.
PLAN:
1. Acute diverticulitis w/ possible intramural abscess
-Improving symptom, afebrile, no white count. No significant abdominal tenderness. Tolerating diet. Advance diet per surgery
-DC further IV fluids
-Continue with zosyn given possible abscess-will switch to oral Augmentin on discharge
-Surgery input noted the recommendation is for discharge from surgical standpoint once she tolerates diet
-She was advised to follow-up with the surgery after discharge and also obtain a colonoscopy 6 to 8 weeks times either with colorectal surgery or GI.
2. Anemia-drop in H&H noted which is suspect secondary to dilution. No evidence of external bleeding.
Will continue ppi for GERD and her oral gabapentin and duloxetine.
DVT PPX - lovenox sq
Code status - full code
Anticipated Discharge: Today
Subjective/Interval History
-
Date of Service: April 26, 2024
Patient tolerating current diet. Being advanced to low residue diet. Abdominal pain has much improved. Having some loose stools which is C. difficile negative. No nausea vomiting. No fever or chills.
Objective Data
-
Labs:
Laboratory Results
04/26/24
08:56
WBC 5.1
Hgb 10.8 L
Hct 33.0 L
Plt Count 164
Vital Signs:
Vital Signs
Temp Pulse Resp BP Pulse Ox
98.3 F 76 18 134/68 96
04/26/24 07:35 04/26/24 07:35 04/26/24 07:35 04/26/24 07:35 04/26/24 07:35
I&O
04/25/24 04/26/24 04/27/24
06:59 06:59 06:59
Intake Total 50 / 50 3120 / 3120 360 / 360
Balance 50 / 50 3120 / 3120 360 / 360
Review of Systems
-
Respiratory: Denies Trouble Breathing
Cardiac: Denies Chest Pain
Neuro: Denies Dizzy
Physical Exam
-
General: No Apparent Distress
HEENT: Moist Mucous Membranes
Respiratory: Non Labored Respirations; Negative Accessory Resp Muscle Use
Cardiac: Regular Rhythm and S1/S2; Negative Tachycardic
GI: Soft, Nontender, Nondistended and Normal Bowel Sounds
Neuro: AO x 3
Data Reviewed
-
Labs: Labs Reviewed by me
[2024-04-26 15:32] VITALS: BP 107/54
--- NOTE | 2024-04-26 15:36 | CM ---
Patient with Hx recurrent diverticulitis. Room air. Receiving IV Abx. PT Eval pending.
Spoke with patient's son Rayshawn;
the patient resides with her daughter Lise in a 2 story house with 5 [address] and first floor bedroom/bath.
The patient has been independent in ADLs and ambulation sometimes using her RW.
DME - [facility]
No prior VN or SNF.
PCP - [facility]acy - [facility]
The son says that the patient is in the process of selling her home and plans on moving to [place] or [place] in the next few weeks.
Plan follow up after seen by PT.
[2024-04-26] MEDS: IMODIUM 2 MG PO ×2 (16:17→22:32)
[2024-04-26] MEDS: LOVENOX 40 MG SC (18:10)
[2024-04-26] MEDS: LIPITOR 20 MG PO (21:38)
[2024-04-26 23:46] VITALS: BP 129/71
[2024-04-27] MEDS: ZOSYN 50 IV ×2 (04:07→09:03)
[2024-04-27 07:30] VITALS: BP 121/68
[2024-04-27] MEDS: NEURONTIN 400 MG PO (09:03)
[2024-04-27] MEDS: CYMBALTA DELAYED RELEASE 40 MG PO (09:03)
[2024-04-27] MEDS: PROTONIX 40 MG PO (09:03)
[2024-04-27] MEDS: IMODIUM 2 MG PO (10:55)
[2024-04-27 12:11] LABS: Hematocrit 33.7 % (37.0-47.0); Hemoglobin 11.2 g/dL (12.0-16.0); Mean Corp Hgb Conc. 33.2 g/dL (33.0-37.0); Mean Corpuscular Hgb 29.3 pg (27.0-31.0); Mean Corpuscular Volume 88.2 fL (81.0-99.0); Mean Platelet Volume 10.7 fL (7.4-10.4); Platelet Count 160 10^3/uL (130-400); Red Blood Cell Count 3.82 10^6/uL (4.20-5.40); Red Cell Dist. Width 13.7 % (11.5-14.5)
--- NOTE | 2024-04-27 12:51 | W.PN.HOSP.TC ---
Today's Communication/Plan
-
DC
Assessment / Plan
Assessment / Plan
88-year-old with history of recurrent diverticulitis in the past presents with subacute abdominal pain for several weeks now and found to have sigmoid diverticulitis with possible intramural abscess or edema in the involved region. She is
well-appearing, nontoxic hemodynamically stable and in no acute distress. Labs are unremarkable.
PLAN:
Acute diverticulitis w/ possible intramural abscess
-Improved symptom, afebrile, no white count. No significant abdominal tenderness. Tolerating diet. DC ok from surgical standpoint per surgery
-DC further IV fluids
- switch to oral Augmentin
-She was advised to follow-up with GI after discharge to obtain a colonoscopy 6 to 8 weeks times .
Anemia-drop in H&H noted which is suspect secondary to dilution. No evidence of external bleeding.HH stable
Loose stools -unclear if sec to abx . C Diff neg.Check norovirus. CW Imodium.
Will continue ppi for GERD and her oral gabapentin and duloxetine.
DVT PPX - lovenox sq
Code status - full code
DC home today if diarrhea improves
Anticipated Discharge: Today
Subjective/Interval History
-
Date of Service: April 27, 2024
Tolerating diet without nausea vomiting. Not much of abdominal pain. She does has loose stools which she is troubled with and hesitant to go home. CT was negative.
No fever or chills.
Objective Data
-
Labs:
Laboratory Results
04/27/24
11:59
WBC 6.0
Hgb 11.2 L
Hct 33.7 L
Plt Count 160
Vital Signs:
Vital Signs
Temp Pulse Resp BP Pulse Ox
97.8 F 77 20 121/68 94
04/27/24 07:30 04/27/24 07:30 04/27/24 07:30 04/27/24 07:30 04/27/24 09:15
I&O
04/26/24 04/27/24 04/28/24
06:59 06:59 06:59
Intake Total 3120 / 3120 600 / 600
Balance 3120 / 3120 600 / 600
Physical Exam
-
General: Comfortable
Respiratory: Non Labored Respirations; Negative Accessory Resp Muscle Use
Cardiac: Regular Rhythm; Negative Tachycardic
GI: Soft, Nontender, Nondistended and Normal Bowel Sounds
Neuro: AO x 3
Psych: Calm; Negative Confused
Data Reviewed
-
Labs: Labs Reviewed by me
--- NOTE | 2024-04-27 15:21 | CM ---
CM met with Kandi and her family at bedside and discussed discharge with RN and Dr. Clifton. IMM provided and reviewed with Kandi and her sons. Form signed and placed in chart.
VN offered and declined,as Kandi will be moving in the near future and does not want to start services. She feels that she will get stronger on her own when she gets home.
Plan: Discharge to home with no needs.
[2024-04-27 15:25] VITALS: BP 118/70
--- NOTE | 2024-04-28 08:10 | W.DCSUMMARY ---
Discharge Summary
Discharge Data
Date of Admission: 04/24/24
Date of Discharge: 04/27/24
-
Pending Results: No
Hospital Course
Primary diagnosis:
Acute diverticulitis with possible intramural abscess
Loose stools
Secondary diagnosis:
Hyperlipidemia
Restless leg syndrome
Hospital course:
88-year-old with history of hyperlipidemia ,restless leg syndrome , and recurrent diverticulitis in the past presents with subacute abdominal pain for several weeks now and found to have sigmoid diverticulitis with possible intramural abscess or
edema in the involved region. She was nontoxic. She was afebrile. Blood pressure was stable. White count was normal. Creatinine was normal. Was seen by surgery who recommended nonoperative management. Was initiated on Zosyn. She did well
with resolution of pain and she was tolerating a diet. She was able to look stools which was C. difficile negative. She was treated with Imodium. She was seen by PT who recommended home health. She lives with family and she felt today that she
could manage at home. She was given a prescription for Augmentin to complete another 7 days. She was advised that she should return back to GI in 4 to 6 weeks time for follow-up colonoscopy.
Consultants on board:
General Surgery-Luis Sheridan
Discharge Plan
-
Patient Disposition: Home with Home Care
Discharge Diagnosis/Procedures: Acute diverticulitis w/ possible intramural abscess
Diet: Low Residue
Activity: As tolerated
Driving Restrictions: As prior to admission
Other Services: PT
Referrals:
Sierra Hester DO [Family Provider] - in less than 1 week
Jason Nguyen MD [Active] - in four to six weeks (follow up with GI for colonoscopy)
Prescriptions:
New
loperamide 2 mg Capsule
2 mg PO Q6HPRN PRN (Reason: diarrhea) Qty: 10 0RF
amoxicillin-pot clavulanate 875-125 mg Tablet
1 tab PO Q12 Qty: 14 0RF
Continued
acetaminophen [Tylenol Extra Strength] 500 MG tablet
500 mg PO BID
dicyclomine 20 mg Tablet
20 mg PO QIDPRN PRN (Reason: abd discomfort)
lorazepam 1 MG tablet
1 mg PO DAILYPRN PRN (Reason: anxiety)
Patient Comments:
04/24/24: last filled 01/25/24 for 30 tabs per PDMP
pantoprazole 40 MG tablet,delayed release (DR/EC)
40 mg PO DAILY
simvastatin 40 mg Tablet
40 mg PO HS
pramipexole 0.25 mg Tablet
0.25 mg PO TIDPRN PRN (Reason: restless leg)
duloxetine 20 mg Capsule,Delayed Release(Dr/Ec)
40 mg PO DAILY
gabapentin 400 mg Capsule
400 mg PO TID
Discharge Orders:
Discharge Patient (As Directed); Ordered 04/27/24
Ordered By: Stewart Clifton
Discharge Date and Time
Discharge Date/Time: 04/27/24 17:32
Print Language: LUXEMBOURGER
== END 2024-04-27 17:32 | disposition home or self-care (01) | DRG 392 ==
LOC: 4 EAST ACU 23:44
PROVIDERS: Nurse Practitioner; Student in an Organized Health Care Education/Training Program; ADMITTING PHYSICIAN Internal Medicine; ATTENDING PHYSICIAN Internal Medicine; CONSULT PHYSICIAN Surgery; EMERGENCY PHYSICIAN Emergency Medicine; FAMILY PHYSICIAN Family Medicine
DX: K57.20 Diverticulitis of large intestine with perforation and abscess without bleeding (principal); E78.00 Pure hypercholesterolemia, unspecified; G25.81 Restless legs syndrome; F41.9 Anxiety disorder, unspecified; Z90.49 Acquired absence of other specified parts of digestive tract; Z87.891 Personal history of nicotine dependence; Z88.5 Allergy status to narcotic agent; Z91.041 Radiographic dye allergy status; K21.9 Gastro-esophageal reflux disease without esophagitis; I10 Essential (primary) hypertension; D64.9 Anemia, unspecified; I25.10 Atherosclerotic heart disease of native coronary artery without angina pectoris; J45.909 Unspecified asthma, uncomplicated; K58.8 Other irritable bowel syndrome; M79.7 Fibromyalgia; Z79.899 Other long term (current) drug therapy; Z90.710 Acquired absence of both cervix and uterus; Z95.5 Presence of coronary angioplasty implant and graft; Z98.51 Tubal ligation status
CPT/HCPCS: 74177; 80048; 80053; 81003; 81015; 83690; 85025; 85027; 87324; 87449; 96361; 96365; 96375; 97161; 97530; 99285; Q9967

== ENCOUNTER 2024-04-28 09:58 | Inpatient (IN) | payer OTHER, SELFPAY ==
[2024-04-28] VITALS (15 sets, daily range): BP systolic 95–143; BP diastolic 51–92; O2SAT 96; BMI 25.2
--- NOTE | 2024-04-28 05:09 | ED.GENMED ---
History of Present Illness
<Michel Wray, DO - Last Filed: 04/30/24 08:16>
General
Chief Complaint: Breathing Problem
Source: patient and ambulance crew
Exam Limitations: none
Time Seen by Provider: 04/28/24 05:06
History of Present Illness
History of Present Illness:
See MDM
Past History
<Michel Wray, DO - Last Filed: 04/30/24 08:16>
Past History
ED Past Medical History: Asthma, CAD, Fibromyalgia, GERD, HTN, Hypercholesterolemia and MS
ED Past Surgical History: Cardiac (Angioplasty with stent ), Cholecystectomy and Gynecological (Hysterectomy and prior tubal ligation )
Social History
Tobacco: Former smoker
Alcohol: None
Living: with family
Employment: Retired
Family History
Family History: Hypertension
Phy Exam
<Michel Wray, DO - Last Filed: 04/30/24 08:16>
Physical Exam
Physical Exam:
See MDM
Scores
<Michel Wray, DO - Last Filed: 04/30/24 08:16>
Heart Failure Risk
Heart Failure Risk Score: Yes
History of Stroke or TIA: No
History of intubation for respiratory distress: No
Heart rate on ED arrival >/= 110: Yes
SaO2 <90% on arrival on room air: Yes
HR >/=110 during 3min walk test (or too ill to perform test): Yes
ECG has acute ischemic changes: No
Urea >/=12mmol/L (BUN 33.6mg/dL): No
Serum CO2>/=35mmol/L: No
Troponin I or T elevated to MS Level (0.4mg/dL): No
NT-proBNP >/=5,000ng/L (5,000pg/ml): No
HF Risk Score: 3
Admission Status: HIGH RISK 15.9% Consider SNF treatment or admission to hospital
Course
<Michel Wray, DO - Last Filed: 04/30/24 08:16>
Orders/Labs/Results
Orders:
Orders
04/28/24 05:07
Ipratropium/Albuterol Sulfate [Duoneb] 3 ml INH R NOW STA
04/28/24 05:08
Electrocardiogram (*1) Urgent
Reason for Study: Shortness of Breath
EKG- Treatment ONCE
CR Chest Portable - 1 View Urgent
Comment:
Reason For Exam: SOB
Reason Study Needs to be Portable: Patient Unstable
04/28/24 05:45
Complete Blood Count/With Diff Urgent
Comprehensive Metabolic Panel Urgent
NT-proBNP Urgent
Troponin I Urgent
04/28/24 Breakfast
Low Residue
At Your Request: Limited Participation
04/28/24 06:24
Furosemide [Lasix] 20 mg IV NOW STA
04/28/24 07:08
Ipratropium/Albuterol Sulfate [Duoneb] 3 ml INH R NOW STA
04/28/24 07:36
COVID-19 Antigen Routine
Source: Nasal Swab
Venous Blood Gas Urgent
%Oxygen/Room Air: 100
Influenza A+B Rapid Molecular Routine
ELVA Source: Nasal Swab
Specimen Description:
04/28/24 08:59
Admit/Transfer Patient As Directed
Co-Sign Provider:
Level of Care: Inpatient admission
Assign to:: Telemetry
Physician / Group: Etienne
Diagnosis: Possible CHF
Reason for Telemetry: Acute Heart Failure
Date to Stop Telemetry: 05/01/24
Time to Stop Telemetry: 11:00
Reason for Hospitalization: see progress note
Expected length of stay greater than two midnights?: Yes
ELOS- Estimated Length of Stay in days: 3
I certify the patient meets the requirements for IP care: Yes
PRN Pain Medication Management As Directed
May give lesser potent ordered pain med per pt: Yes
preference::
Protocol:: Medication orders for pain may be administered in a
manner that supports deferring to patient preference
when the pt is:
- Requesting an ordered lesser potent pain medication.
Least to most potent pain medications are defined
as: acetaminophen < NSAID < tramadol < opioids
(morphine, oxycodone, hydromorphone).
- Requesting a lesser dose of the same medication IF
ORDERED.
- Requesting a less intrusive route of administration
if both routes are prescribed by the provider (PO <
IV).
04/28/24 09:01
Code Status As Directed
Resuscitation Status: Full Code
04/28/24 14:21
Acetaminophen [Tylenol] 650 mg PO Q4HPRN PRN
Amoxicillin 875 mg/Clav 125 mg [Augmentin 875 mg/125 mg] 1 tablet PO Q12
Dicyclomine [Bentyl] 20 mg PO QIDPRN PRN
Duloxetine Delayed Release [Cymbalta Delayed Release] 40 mg PO DAILY
Loperamide [Imodium] 2 mg PO Q6HPRN PRN
Lorazepam [Ativan] 1 mg PO DAILYPRN PRN
Pantoprazole [Protonix] 40 mg PO DAILY
Pramipexole [Mirapex] 0.25 mg PO TIDPRN PRN
04/28/24 14:21
CARDIOLOGY CONSULT Routine
Consulting Provider: Jas Burk
Was physician already notified: Yes
Reason for consult: chf
Activity As Directed
Activity Level: As Tolerated
I&O [Intake/ Output] As Directed
Frequency: q12h
Pt Eval And Treat Routine
Activity Level: As Tolerated
DX Deep Vein Thrombosis Video Routine
04/28/24 16:00
Furosemide [Lasix] 20 mg IV BID AT 0800,1600
Gabapentin [Neurontin] 400 mg PO TID
04/28/24 18:00
Atorvastatin [Lipitor] 20 mg PO QPM
Enoxaparin Sodium [Lovenox] 40 mg SC QPM
04/29/24 06:37
Basic Metabolic Panel IN AM
CBC/No Diff [Complete Blood Count/No Diff] IN AM
05/01/24 11:00
DC Protocol for Telemetry ONCE
Abnormal Lab Results
04/28/24 04/28/24
05:45 07:36
RBC 3.95 L 10^6/uL
(4.20-5.40)
Hgb 11.2 L g/dL
(12.0-16.0)
Hct 34.5 L %
(37.0-47.0)
MCHC 32.5 L g/dL
(33.0-37.0)
MPV 10.8 H fL
(7.4-10.4)
Absolute Lymphs (auto) 0.9 L 10^3/uL
(1.2-3.4)
Neutrophils % 79.8 H %
(42.2-75.2)
Lymphocytes % 10.9 L %
(20.5-51.1)
VBG pO2 79 H mmHg
(30-50)
VBG HCO3 27.7 H mmol/L
(22-27)
Glucose 123 H mg/dl
(70-99)
04/28/24 05:45
04/28/24 05:45
Vital Signs
Initial and Last Documented VS:
Initial Vital Signs
Pulse Ox
97
04/28/24 05:04
Last Documented Vital Signs
Temp Pulse Resp BP Pulse Ox
98.5 F 83 16 123/69 94
04/29/24 15:59 04/29/24 15:59 04/29/24 15:59 04/29/24 15:59 04/29/24 15:59
<Nagi Medrano MD - Last Filed: 04/28/24 07:14>
Orders/Labs/Results
Orders:
Orders
04/28/24 05:07
Ipratropium/Albuterol Sulfate [Duoneb] 3 ml INH R NOW STA
04/28/24 05:08
Electrocardiogram (*1) Urgent
Reason for Study: Shortness of Breath
EKG- Treatment ONCE
CR Chest Portable - 1 View Urgent
Comment:
Reason For Exam: SOB
Reason Study Needs to be Portable: Patient Unstable
04/28/24 05:45
Complete Blood Count/With Diff Urgent
Comprehensive Metabolic Panel Urgent
NT-proBNP Urgent
Troponin I Urgent
04/28/24 Breakfast
Low Residue
At Your Request: Limited Participation
04/28/24 06:24
Furosemide [Lasix] 20 mg IV NOW STA
04/28/24 07:08
Ipratropium/Albuterol Sulfate [Duoneb] 3 ml INH R NOW STA
04/28/24 07:36
COVID-19 Antigen Routine
Source: Nasal Swab
Venous Blood Gas Urgent
%Oxygen/Room Air: 100
Influenza A+B Rapid Molecular Routine
ELVA Source: Nasal Swab
Specimen Description:
04/28/24 08:59
Admit/Transfer Patient As Directed
Co-Sign Provider:
Level of Care: Inpatient admission
Assign to:: Telemetry
Physician / Group: Clfiton
Diagnosis: Possible CHF
Reason for Telemetry: Acute Heart Failure
Date to Stop Telemetry: 05/01/24
Time to Stop Telemetry: 11:00
Reason for Hospitalization: see progress note
Expected length of stay greater than two midnights?: Yes
ELOS- Estimated Length of Stay in days: 3
I certify the patient meets the requirements for IP care: Yes
PRN Pain Medication Management As Directed
May give lesser potent ordered pain med per pt: Yes
preference::
Protocol:: Medication orders for pain may be administered in a
manner that supports deferring to patient preference
when the pt is:
- Requesting an ordered lesser potent pain medication.
Least to most potent pain medications are defined
as: acetaminophen < NSAID < tramadol < opioids
(morphine, oxycodone, hydromorphone).
- Requesting a lesser dose of the same medication IF
ORDERED.
- Requesting a less intrusive route of administration
if both routes are prescribed by the provider (PO <
IV).
04/28/24 09:01
Code Status As Directed
Resuscitation Status: Full Code
04/28/24 14:21
Acetaminophen [Tylenol] 650 mg PO Q4HPRN PRN
Amoxicillin 875 mg/Clav 125 mg [Augmentin 875 mg/125 mg] 1 tablet PO Q12
Dicyclomine [Bentyl] 20 mg PO QIDPRN PRN
Duloxetine Delayed Release [Cymbalta Delayed Release] 40 mg PO DAILY
Loperamide [Imodium] 2 mg PO Q6HPRN PRN
Lorazepam [Ativan] 1 mg PO DAILYPRN PRN
Pantoprazole [Protonix] 40 mg PO DAILY
Pramipexole [Mirapex] 0.25 mg PO TIDPRN PRN
04/28/24 14:21
CARDIOLOGY CONSULT Routine
Consulting Provider: Jas Burk
Was physician already notified: Yes
Reason for consult: chf
Activity As Directed
Activity Level: As Tolerated
I&O [Intake/ Output] As Directed
Frequency: q12h
Pt Eval And Treat Routine
Activity Level: As Tolerated
DX Deep Vein Thrombosis Video Routine
04/28/24 16:00
Furosemide [Lasix] 20 mg IV BID AT 0800,1600
Gabapentin [Neurontin] 400 mg PO TID
04/28/24 18:00
Atorvastatin [Lipitor] 20 mg PO QPM
Enoxaparin Sodium [Lovenox] 40 mg SC QPM
04/29/24 06:37
Basic Metabolic Panel IN AM
CBC/No Diff [Complete Blood Count/No Diff] IN AM
05/01/24 11:00
DC Protocol for Telemetry ONCE
Abnormal Lab Results
04/28/24 04/28/24
05:45 07:36
RBC 3.95 L 10^6/uL
(4.20-5.40)
Hgb 11.2 L g/dL
(12.0-16.0)
Hct 34.5 L %
(37.0-47.0)
MCHC 32.5 L g/dL
(33.0-37.0)
MPV 10.8 H fL
(7.4-10.4)
Absolute Lymphs (auto) 0.9 L 10^3/uL
(1.2-3.4)
Neutrophils % 79.8 H %
(42.2-75.2)
Lymphocytes % 10.9 L %
(20.5-51.1)
VBG pO2 79 H mmHg
(30-50)
VBG HCO3 27.7 H mmol/L
(22-27)
Glucose 123 H mg/dl
(70-99)
04/28/24 05:45
04/28/24 05:45
Vital Signs
Resp Rate: 22
Initial and Last Documented VS:
Initial Vital Signs
Pulse Ox
97
04/28/24 05:04
Last Documented Vital Signs
Temp Pulse Resp BP Pulse Ox
98.5 F 83 16 123/69 94
04/29/24 15:59 04/29/24 15:59 04/29/24 15:59 04/29/24 15:59 04/29/24 15:59
<Michel Wray, DO - Last Filed: 04/30/24 08:16>
MDM/Problems Addressed
Differential Diagnosis Includes:
HPI and MDM Narrative:
88-year-old female presenting with shortness of breath. Patient has been feeling sick for the past day or so. EMS provided breathing treatments and Decadron. On arrival, patient has significant wheezing throughout. She is short of breath with
minimal exertion. Will continue DuoNebs and obtain chest x-ray looking for evidence of pneumonia. Will obtain EKG, troponin and BNP. If patient remains persistently short of breath, will likely admit
Physical exam
General: Mildly uncomfortable, tachycardia
HEENT: protecting airway
Neck: appears supple
CV: No evidence of cyanosis
Resp: No accessory muscle use. Diffuse expiratory wheezing throughout
Abd: Non-distended
Extremities: No deformities
Neuro: alert
Psych: Normal affect
Skin: Intact
Problems Addressed including Acute and Chronic Conditions affecting care:
1. Dyspnea and wheezing
Acuity: acute
Prognosis: stable
Details: Will treat as bronchitis with breathing treatments. Patient already received steroids by EMS. Will continue DuoNebs given persistent wheezing and will obtain chest x-ray
Updates
Other chest x-ray appears unchanged from prior, there does appear to be some cephalization. BNP is increased from baseline. Will give dose of Lasix
Differential Diagnosis (but not limited to): COPD exacerbation, bronchitis, pneumonia
Testing considered: D-dimer
Drug therapy (if applicable): OTC meds, please see d/c instruction regarding Rx drugs
Amount and/or Complexity of Data Reviewed
Clinical info obtained from: Patient
External data reviewed: N/A
Labs I independently reviewed (but not limited to): Elevated BNP
Radiology: X-ray independently reviewed: Questionable cephalization on chest x-ray
Pulse Ox: not hypoxic
EKG independently reviewed: Sinus rhythm, normal axis, no STEMI
Import Customer Service Manager: Sinus rhythm
Critical Care: N/A
Risk of Complication:
Social Determinants of health: Good social support
Discussed with other providers: Hospitalist
Escalation of Care includes Admit/Obs: Given the wheezing and elevated BNP, will admit
Occasional wrong word or 'sound a like' substitutions may have occurred due to the inherent limitations of voice recognition software. Read the chart carefully and recognize, using context, where substitutions have occurred.
<Michel Wray DO - Last Filed: 04/30/24 08:16>
*Critical Care Note
Total Time (30-74mins, 75-104mins- exclusive of procedures): Not Applicable
<Nagi Medrano MD - Last Filed: 04/28/24 07:14>
Update Note
Update Note:
UPDATE (Nagi Medrano MD)
I have seen and evaluated the patient after signout and reviewed all labs and imaging.
Focused HPI: 88-year-old female presented via EMS from home for evaluation of significant shortness of breath. Started this morning. Per EMS on their arrival she was markedly hypoxic and tachypneic. She was given Decadron and DuoNeb prehospital
and placed on oxygen. Since arrival she has received an additional DuoNeb treatment and she reports significant subjective improvement.
Physical exam: Awake and alert. Heart rate in the 90s, mild tachypnea with respiratory rate of 22. Pulse ox 91% on room air on my assessment. She still has wheezing at the lung bases bilaterally.
Medical Decision Makin-year-old female presented with shortness of breath and marked hypoxia. Improved with steroid and 2 DuoNebs but still mild wheezing and mild tachypnea, low normal pulse ox. Will treat with additional DuoNeb. She did
have labs including a CBC and a CMP which showed no clinically significant abnormalities. She had a proBNP sent off which was mildly elevated�no other signs of CHF but she was given a dose of Lasix x 1. Chest x-ray shows no pneumonia or overt CHF.
Will admit to the hospitalist for continued care of what I suspect is acute bronchitis versus asthma/COPD. Case discussed with hospitalist for admission.
ED Attending Note
<Michel Wray DO - Last Filed: 04/30/24 08:16>
-
Portions of this chart may have been created with voice recognition software.� Occasional wrong word or��sound alike� substitutions may have occurred due to the inherent limitations of voice recognition software.
Discharge Plan
Departure
Patient Disposition: Admit
Date of Disposition: 04/28/24
Time of Disposition: 07:11
Admit to: Med/Surg
Admit to doctor: Cleve
Presentation/result/management discussed w/ accepting MD/DO: Hospitalist
Discharge Problem:
Acute dyspnea, Bronchitis
Interventions
Interventions:
*Risk Screen - Suicide Last Done: 04/28/24 05:11
*General Assessment Last Done: 04/28/24 05:11
*Neglect/Abuse Screening Last Done: 04/28/24 05:11
ED- Fall Risk Assessment Last Done: 04/28/24 05:21
*ED COVID-19 Vaccine History Last Done: 04/28/24 05:27
*Nursing Disposition Last Done: 04/28/24 14:13
ED- Cardiac Assessment Last Done: 04/28/24 05:21
ED- Pulmonary Assessment Last Done: 04/28/24 05:21
Discharge Date and Time
Discharge Date/Time: 04/28/24 14:14
[2024-04-28] MEDS: DUONEB 3 ML INH ×2 (05:30→07:41)
[2024-04-28 06:06] LABS: % Basophils 0.4 % (0-2); % Immature Granulocytes 0.2 % (0-0.5); % Lymphocytes 10.9 % (20.5-51.1); % Monocytes 6.7 % (1.7-9.3); % Neutrophils 79.8 % (42.2-75.2); Absolute Eosinophils 0.2 10^3/uL (0-0.7); Absolute Lymphocytes 0.9 10^3/uL (1.2-3.4); Absolute Monocytes 0.5 10^3/uL (0.1-0.6); Absolute Neutrophils 6.5 10^3/uL (1.4-6.5); Hematocrit 34.5 % (37.0-47.0); Hemoglobin 11.2 g/dL (12.0-16.0); Mean Corp Hgb Conc. 32.5 g/dL (33.0-37.0); Mean Corpuscular Hgb 28.4 pg (27.0-31.0); Mean Corpuscular Volume 87.3 fL (81.0-99.0); Mean Platelet Volume 10.8 fL (7.4-10.4); Nucleated Red Blood Cells % 0 %; Platelet Count 160 10^3/uL (130-400); Red Blood Cell Count 3.95 10^6/uL (4.20-5.40); Red Cell Dist. Width 13.4 % (11.5-14.5); White Blood Cell Count 8.1 10^3/uL (4.8-10.8)
[2024-04-28 06:16] LABS: ALT (SGPT) 12 U/L (0-35); AST (SGOT) 17 U/L (14-36); Albumin 3.6 g/dl (3.5-5.0); Alkaline Phosphatase 85 U/L (38-126); Blood Urea Nitrogen 7 mg/dl (7-17); Calcium 8.7 mg/dl (8.4-10.2); Carbon Dioxide 27 mmol/L (22-30); Chloride 100 mmol/L (98-107); Estimated Creatinine Clearance 65 ml/min; Glucose 123 mg/dl (70-99); NT-proBNP 1190 pg/ml; Potassium 3.8 mmol/L (3.5-5.1); Sodium 135 mmol/L (135-145); Total Bilirubin 0.9 mg/dl (0.2-1.3); Total Protein 6.7 g/dl (6.3-8.2); Troponin I < 0.012 ng/ml; eGFR > 60.00
[2024-04-28] MEDS: LASIX 20 MG IV ×2 (07:41→15:33)
[2024-04-28 07:50] LABS: Venous Blood Gas B.E. 1.8 mmol/L (-4 to +4); Venous Blood Gas HCO3 27.7 mmol/L (22-27); Venous Blood Gas O2 Sat % 97.3 %; Venous Blood Gas pCO2 48 mmHg (35-48); Venous Blood Gas pH 7.37 (7.32-7.43); Venous Blood Gas pO2 79 mmHg (30-50)
[2024-04-28 08:04] LABS: COVID-19 Antigen Negative (Negative)
--- NOTE | 2024-04-28 09:12 | HPS.HSE ---
Family Physician
-
Family Physician: Sierra Hester
Chief Complaint
-
Shortness of breath
History of Present Illness
Patient was discharged yesterday afternoon after evaluation and treatments of acute diverticulitis with possible intramural abscess. She was tolerating diet and then.
She went home and yesterday evening she she started to become short of breath. She says she did not feel any symptom of shortness of breath during the hospital stay. During episode of shortness of breath she denies any chest pain or palpitations.
No lightheadedness.
She denies any prior history of congestive heart failure or COPD or asthma. He is an ex smoker.
Review of the chart shows she has CAD with prior [place] and coronary stent, hypertension, hyperlipidemia. There is mention of COPD in the chart . She says she has an inhaler at home and she seldom uses it.
To me she was denying any cough or phlegm. Denies any wheezing. No sore throat.
Apparently she was complaining of coughing with SOB. She was noted to have hypoxia and tachypnea by EMS. She got a dose of steroids and neb before coming into the hospital. She still had some wheezing at the bases with a pulse ox of 90 to 92% on
room air in the ED. She was given a dose of Lasix.
Currently she is still in the ER and feeling comfortable with her breathing. Oxygenating well on room air. No tachypnea or respiratory distress noted.
From diverticulitis standpoint she denies any nausea vomiting. She was tolerating diet. She denies any abdominal pain. She had a trouble with loose stools in hospital which were C. difficile negative and she says she is much improved from that
standpoint.
Medical History
Past Medical History
Past Medical History: Reports Hypercholesterolemia and Psychiatric (anxiety)
Additional Past Medical History:
h/o diverticulitis
Past Surgical History: Reports Cholecystectomy and Orthopedic (back surgery)
Social History
Tobacco: Former Smoker
Alcohol: None
Drug: None
Living: With Family
Employment: Retired
Family History
Family History: Not pertinent
Allergies / Home Medications
Allergies reflects when Allergies were last updated in [facility].
Home Medications with original date entered in [facility]
Allergy/Medication List:
Allergies
Allergy/AdvReac Type Severity Reaction Status Date / Time
aspartame [Aspartame] Allergy severe Verified 04/24/24 12:55
headache,stomach
cramps,vomiting,diarrhea
codeine Allergy nausea,severe Verified 04/24/24 12:55
headache
Iodinated Contrast Media Allergy Unknown Verified 04/24/24 12:55
[IV Dye, Iodine Containing]
mold extracts [Mold Extracts] Allergy Unknown Verified 04/24/24 12:55
morphine Allergy Hives,SWELL Verified 04/24/24 12:55
ING
NSAIDS (Non-Steroidal Allergy Unknown Verified 04/24/24 12:55
Anti-Inflamma
promethazine HCl Allergy Unknown Verified 04/24/24 12:55
[From Phenergan]
saccharin [Saccharin] Allergy severe Verified 04/24/24 12:55
headache,stomach
cramps,vomiting,diarrhea
Salicylates * Allergy Unknown Verified 04/24/24 12:55
bupropion HCl AdvReac Unknown Verified 04/24/24 12:55
[From Wellbutrin]
DUST Allergy Unknown Uncoded 04/24/24 12:55
Home Medications
acetaminophen 500 mg tablet (Tylenol Extra Strength) 500 mg PO BID 01/30/11
dicyclomine 20 mg tablet 20 mg PO QIDPRN PRN abd discomfort 01/30/11
lorazepam 1 mg tablet 1 mg PO DAILYPRN PRN anxiety 01/30/11
pantoprazole 40 mg tablet,delayed release 40 mg PO DAILY 07/08/12
duloxetine 20 mg capsule,delayed release 40 mg PO DAILY 03/11/23
pramipexole 0.25 mg tablet 0.25 mg PO TIDPRN PRN restless leg 03/11/23
simvastatin 40 mg tablet 40 mg PO HS 03/11/23
gabapentin 400 mg capsule 400 mg PO TID 04/24/24
Review of Systems
-
A 12 point ROS was completed and negative except as noted: Yes
Physical Exam
Vital Signs
Vital Signs
Temp Pulse Resp BP Pulse Ox
98.3 F 89 16 105/61 96
04/28/24 05:11 04/28/24 08:00 04/28/24 08:00 04/28/24 08:00 04/28/24 08:00
Physical Exam
General: Comfortable
HEENT: Moist mucous membranes
Respiratory: Wheezes (moses wheeze in rt lower zone ), Crackles (left base ) and Accessory Resp Muscle Use; No Decreased Breath Sounds
Cardiac: S1/S2 and Irregular Rhythm (Occasional irregularity noted but no arrhythmia noted on the monitor. PACs noted); No Peripheral Edema or JVD
GI: Soft, Non Tender, Non Distended and Normal Bowel Sounds
Musculoskeletal: No Edema
Neuro: AO x 3
Psych: Calm; No Confused or Agitated
Laboratory Results
-
04/28/24 05:45
04/28/24 05:45
Laboratory Results
Total Bilirubin 0.9 mg/dl (0.2-1.3) 04/28/24 05:45
AST 17 U/L (14-36) 04/28/24 05:45
ALT 12 U/L (0-35) 04/28/24 05:45
Alkaline Phosphatase 85 U/L (38-126) 04/28/24 05:45
Troponin I < 0.012 ng/ml 04/28/24 05:45
Data Reviewed
-
Diagnostic Radiology: Report Reviewed by me (cxr)
Lab Data: Labs Reviewed by me
Impression/Plan
-
Sudden onset of shortness of breath with associated cough and wheezing-clinical suspicion is for possible acute CHF decompensation. Doubt COPD exacerbation.
She was discharged yesterday after treatments for diverticulitis. She was given IV fluids. Her weight is up. Her BNP is elevated. She is known to have moderate to severe aortic stenosis along with mild to moderate MR and AR. She was also noted
to have EF of 45 to 50%. Chest x-ray shows no CHF. No pneumonia noted as well. She has felt improved so far. She was given Lasix in the ED and she also had a dose of nebulizer and steroids.
Note continue to treat with IV Lasix for possible CHF. Hold on steroids.
Follow telemetry for any arrhythmias.
Consult cardiology.
Follow response of IV Lasix.
Troponins and admissions were negative. EKG did not show any evidence of acute ST-T changes.
Patient without chest pain.
History of CAD with coronary stenting 2006-patient not on aspirin or any other antiplatelet agent. On statins ,which I would continue. Baseline EKG and troponins no evidence of acute coronary event.
Acute diverticulitis w/ possible intramural abscess
Remains improved. Continue the low residue diet. Continue with the Augmentin. She is afebrile and white count is normal. Abdomen benign.
Hyperlipidemia-continue with statins
Restless leg syndrome-continue with pramipexole as needed, gabapentin
Full code
--- NOTE | 2024-04-28 11:48 | CON.CAR ---
Consultation
Consultation Request
Requesting Provider: Etienne
Performing Provider: Wm
Reason for Consultation: HF, volume overload
Medical History
-
Chief Complaint: SOB, cough
History of Present Illness:
Patient is a very pleasant 88-year-old female with a past medical history significant for CAD with PCI 2006, hypertension, hyperlipidemia, IBS, COPD, fibromyalgia, GERD who was recently admitted and treated for acute diverticulitis. During that
hospital admission, patient received 4 L of IV fluids as well as antibiotic therapy with Zosyn. Patient was treated conservatively with plan to discharge on oral antibiotic therapy and plan to follow-up with GI as an outpatient. Patient noted to
have dilutional anemia without evidence of bleeding. Hemoglobin has remained stable from recent hospitalization till today. Patient was discharged on 04/27/2024 and returned to hospital 04/28/2024 due to worsening shortness of breath, cough.
Patient noted that at home, she was struggling to breathe with minimal activity and exertion. Additionally, she was noted nonproductive cough. In emergency department, patient was noted to be afebrile without a white count. Troponin negative, BNP
elevated at 1200. Prior BNP's were less than 100. SARS-CoV-2/influenza testing negative. Chest x-ray negative. Patient given IV Lasix x 1 and neb treatment. Patient notes significant improvement but still notes mild shortness of breath.
Patient denies any chest pain, lightheadedness, dizziness, near-syncope, syncope, PND, orthopnea, lower extremity edema, weakness.
Past Medical History
Past Medical History: Other (See HPI)
Past Surgical History: Other (Appendectomy, back surgery for herniated disc, bilateral tubal ligation, carpal tunnel, cholecystectomy, EGD, hysterectomy, PCI 2006)
Social History
Tobacco: Former Smoker
Alcohol: None
Drug: None
Living: With Family
Employment: Retired
Family History
Family History: Reviewed & Not Pertinent
Allergies / Home Medications
Allergy/AdvReac Type Severity Reaction Status Date / Time
aspartame [Aspartame] Allergy severe Verified 04/28/24 05:11
headache,stomach
cramps,vomiting,diarrhea
codeine Allergy nausea,severe Verified 04/28/24 05:11
headache
Iodinated Contrast Media Allergy Unknown Verified 04/28/24 05:11
[IV Dye, Iodine Containing]
mold extracts [Mold Extracts] Allergy Unknown Verified 04/28/24 05:11
morphine Allergy Hives,SWELL Verified 04/28/24 05:11
ING
NSAIDS (Non-Steroidal Allergy Unknown Verified 04/28/24 05:11
Anti-Inflamma
promethazine HCl Allergy Unknown Verified 04/28/24 05:11
[From Phenergan]
saccharin [Saccharin] Allergy severe Verified 04/28/24 05:11
headache,stomach
cramps,vomiting,diarrhea
Salicylates * Allergy Unknown Verified 04/28/24 05:11
bupropion HCl AdvReac Unknown Verified 04/28/24 05:11
[From Wellbutrin]
DUST Allergy Unknown Uncoded 04/28/24 05:11
�Medication �Instructions �Recorded �Confirmed �Type
acetaminophen 500 mg tablet 500 mg PO BID Pain 01/30/11 04/28/24 History
(Tylenol Extra Strength)
dicyclomine 20 mg tablet 20 mg PO QIDPRN PRN abd discomfort 01/30/11 04/28/24 History
lorazepam 1 mg tablet 1 mg PO DAILYPRN PRN anxiety 01/30/11 04/28/24 History
pantoprazole 40 mg tablet,delayed 40 mg PO DAILY Gastrointestinal 07/08/12 04/28/24 History
release Issue
duloxetine 20 mg capsule,delayed 40 mg PO DAILY Mental Health 03/11/23 04/28/24 History
release
pramipexole 0.25 mg tablet 0.25 mg PO TIDPRN PRN restless leg 03/11/23 04/28/24 History
simvastatin 40 mg tablet 40 mg PO HS High Cholesterol 03/11/23 04/28/24 History
gabapentin 400 mg capsule 400 mg PO TID Pain 04/24/24 04/28/24 History
loperamide 2 mg capsule 2 mg PO Q6HPRN PRN diarrhea #10 04/27/24 04/28/24 Rx
caps
amoxicillin 875 mg-potassium 1 tab PO Q12 Infection 04/28/24 04/28/24 History
clavulanate 125 mg tablet
Review of Systems
-
History Source: Patient
All other systems: Negative unless noted
Constitutional: No Symptoms
EENT: No Symptoms
Respiratory: Cough and Trouble Breathing
Cardiac: No Symptoms
Abdomen/GI: No Symptoms
: No Symptoms
Musculoskeletal: No Symptoms
Skin: No Symptoms
Neurological: No Symptoms
Endocrine: No Symptoms
Hematologic/Lymphatic: No Symptoms
Physical Exam
Vital Signs
Temp Pulse Resp BP Pulse Ox
98.3 F 95 20 105/68 96
04/28/24 05:11 04/28/24 11:30 04/28/24 11:30 04/28/24 11:00 04/28/24 11:30
Physical exam:
GENERAL: no acute distress
EYE: sclera anicteric
NECK: Supple, no JVD, no carotid bruit appreciated
ENT: normal nose, moist mucosal membranes
CARDIAC: Regular rate and rhythm, +S1/S2, no murmur, rubs, or gallops
CHEST/PULMONARY: Normal effort, bibasilar crackles
ABDOMEN: Soft, without focal tenderness or distention
NEUROLOGICAL: Alert and oriented x3
SKIN: Warm and dry, no rash
PSYCH: Normal and appropriate interaction.
Lab Results
04/28/24 05:45
04/28/24 05:45
Troponin I < 0.012 ng/ml 04/28/24 05:45
Tgs-F-Gslfuepmrcr Pept 1190 pg/ml 04/28/24 05:45
Impression / Plan
-
PCP: Sierra Hester MD
Acetylene Operator: Jason Calixto MD
.
Impression:
Shortness of breath, multifactorial, improved with diuresis and neb treatment
� Possibly associated with longstanding COPD with acute volume overload in the setting of recent infection
� Productive cough
� BNP 1100, troponin negative, EKG sinus rhythm without significant ST-T abnormality
Acute on chronic heart failure with preserved ejection fraction
� Echocardiogram 01/24/2024 notes EF of 45 to 50%
Acute diverticulitis, status post hospital admission for IV antibiotic therapy now on oral antibiotic therapy
CAD status post PCI 2006
History of IMI
Hypertension
Hyperlipidemia
COPD
Valvular heart disease
� Moderate to severe (48/20 mmHg, EDUARDO 0.6 cm to)
� Mild to moderate MR, AI
Echo 01/27/2024: Normal LV size and function, EF 45�50 by visual, 50% by Nunn's; mild LVH, mild to moderate MR, mild to moderate AI, moderate to severe , mild TR PASP 29 mmHg
Echo 04/28/2024: Pending
CXR 04/28/2024: No acute cardiopulmonary disease
Plan:
Admission to hospital service monitor on telemetry
Echocardiogram to assess cardiac size, shape, function, and valvular disease
Patient with multifactorial shortness of breath but likely acute on chronic heart failure with preserved ejection fraction in the setting of volume overload following treatment for diverticulitis. Patient received 4 L of normal saline along with IV
antibiotic therapy.
Continue IV diuresis with Lasix. Patient received IV Lasix 20 mg x 1. Will plan for additional dose today and monitor response.
Monitor intake, output, daily weights; replete electrolytes goal potassium greater than 4, magnesium greater than 2
Defer evaluation and treatment of COPD to primary service
Antibiotic therapy per primary service for diverticulitis
Will follow
Data Reviewed
-
EKG: Tracing Personally Visualized and interpreted
Radiology: Report Reviewed by me
CT Scan: Report Reviewed by me
Medical Tests (Nuc Med, Echo etc): Report Reviewed by me
Labs: Labs Reviewed by me
Old Records: Reviewed
[2024-04-28] MEDS: KCL 40 MEQ PO (13:08)
[2024-04-28 13:37] LABS: Magnesium 1.8 mg/dl (1.6-2.3)
--- NOTE | 2024-04-28 14:20 | PTCARENOTE ---
Received pt from ED via stretcher. Stretcher placed next to bed, pt able to stand and pivot into bed with assist x1. Telemetry placed. AAOx3. Son at bedside. Assessed and oriented to room. Pt verbalized understanding of call don. Call don within
close reach. Will cont to monitor.
[2024-04-28] MEDS: NEURONTIN 400 MG PO ×2 (15:34→20:59)
[2024-04-28] MEDS: AUGMENTIN 875 MG/125 MG 1 TABLET PO ×2 (15:34→20:54)
[2024-04-28] MEDS: PROTONIX 40 MG PO (15:34)
[2024-04-28] MEDS: CYMBALTA DELAYED RELEASE 40 MG PO (15:34)
[2024-04-28] MEDS: LIPITOR 20 MG PO (17:54)
[2024-04-28] MEDS: LOVENOX 40 MG SC (17:54)
[2024-04-29 03:40] VITALS: BP 119/69
[2024-04-29 06:00] VITALS: BMI 23.7
[2024-04-29 07:24] LABS: Blood Urea Nitrogen 16 mg/dl (7-17); Carbon Dioxide 29 mmol/L (22-30); Chloride 98 mmol/L (98-107); Estimated Creatinine Clearance 49 ml/min; Glucose 103 mg/dl (70-99); Potassium 4.3 mmol/L (3.5-5.1); Sodium 136 mmol/L (135-145); eGFR > 60.00
[2024-04-29 07:30] VITALS: BP 107/59
[2024-04-29 08:01] LABS: Hematocrit 34.7 % (37.0-47.0); Hemoglobin 11.4 g/dL (12.0-16.0); Mean Corp Hgb Conc. 32.9 g/dL (33.0-37.0); Mean Corpuscular Hgb 29.2 pg (27.0-31.0); Mean Platelet Volume 10.7 fL (7.4-10.4); Platelet Count 194 10^3/uL (130-400); Red Cell Dist. Width 13.8 % (11.5-14.5); White Blood Cell Count 6.1 10^3/uL (4.8-10.8)
[2024-04-29] MEDS: LASIX 20 MG IV (08:18)
[2024-04-29] MEDS: AUGMENTIN 875 MG/125 MG 1 TABLET PO (08:19)
[2024-04-29] MEDS: NEURONTIN 400 MG PO ×2 (08:19→15:50)
[2024-04-29] MEDS: PROTONIX 40 MG PO (08:19)
[2024-04-29] MEDS: CYMBALTA DELAYED RELEASE 40 MG PO (08:19)
[2024-04-29 11:51] VITALS: BP 123/63
--- NOTE | 2024-04-29 13:40 | W.PN.HOSP.TC ---
Addendum entered and electronically signed by Stewart Clifton MD 04/29/24 14:49:
PT recommended SNF but family declined and want to take her home. DC with home services.
Original Note:
Today's Communication/Plan
-
Continue with diuresis per cardiology
DC planning
Assessment / Plan
Assessment / Plan
Sudden onset of shortness of breath with associated cough and wheezing-clinical suspicion is for possible acute CHF decompensation. Doubt COPD exacerbation.
She was discharged 04/27 after treatments for diverticulitis. She was given IV fluids. Her weight is up. Her BNP is elevated. She is known to have moderate to severe aortic stenosis along with mild to moderate MR and AR. She was also noted to
have EF of 45 to 50%. Chest x-ray shows no CHF. No pneumonia noted as well.
Her symptoms have resolved. She is asymptomatic. Improved weight. Echo shows When compared to prior study on 01/27/2024, LVEF 47% (prev. 50%), aortic valve gradient 61/37 mmHg (prev 48/28 mmHg), and PASP 36 mmHg (prev 29 mmHg); no other
significant change. .
No arrhythmias noted on telemetry.
Continue further Lasix per cardiology.
Troponins and admissions were negative. EKG did not show any evidence of acute ST-T changes.
Patient without chest pain.
Again clinically not sounding like COPD exacerbation with quick improvement. Hold on steroids. She has no reactive airways today.
History of CAD with coronary stenting 2006-patient not on aspirin or any other antiplatelet agent. On statins ,which I would continue. Baseline EKG and troponins no evidence of acute coronary event.
Acute diverticulitis w/ possible intramural abscess
Remains improved. Continue the low residue diet. Continue with the Augmentin. She is afebrile and white count is normal. Abdomen benign.
Hyperlipidemia-continue with statins
Restless leg syndrome-continue with pramipexole as needed, gabapentin
Full code
DC home when okay from cardiology standpoint
Discussed with son at bedside.
Anticipated Discharge: Today
Subjective/Interval History
-
Date of Service: April 29, 2024
Feels better with her breathing.No trouble with breathing today.
Denies CP. Denies palpitation.
No nausea vomiting. Tolerating diet. Denies any abdominal pain. Denies any further diarrhea.
No cough
Objective Data
-
Labs:
Laboratory Results
04/29/24
06:37
WBC 6.1
Hgb 11.4 L
Hct 34.7 L
Plt Count 194 D
Sodium 136
Potassium 4.3
Chloride 98
Carbon Dioxide 29
BUN 16
Creatinine 0.8
Glucose 103 H
Calcium 9.0
Vital Signs:
Vital Signs
Temp Pulse Resp BP Pulse Ox
98.2 F 83 16 123/63 95
04/29/24 11:51 04/29/24 11:51 04/29/24 11:51 04/29/24 11:51 04/29/24 11:51
I&O
04/28/24 04/29/24 04/30/24
06:59 06:59 06:59
Intake Total 960 / 960
Balance 960 / 960
Review of Systems
-
Constitutional: Denies Fever or Chills
EENT: Denies Sore Throat
Neuro: Denies Dizzy or Headache
Physical Exam
-
General: No Apparent Distress
HEENT: Moist Mucous Membranes
Respiratory: Clear to Auscultation and Non Labored Respirations; Negative Wheezes, Crackles or Accessory Resp Muscle Use
Cardiac: Regular Rhythm and S1/S2; Negative Tachycardic
GI: Soft
Neuro: AO x 3
Psych: Calm
Data Reviewed
-
Labs: Labs Reviewed by me
--- NOTE | 2024-04-29 14:25 | W.PN.CARDCBS ---
Today's Communication / Plan
-
Transition to p.o. Lasix
Add metoprolol succinate 12.5 mg daily
Follow-up BMP, mag 1 week with follow-up with cardiology 1 to 2 weeks (front sight attacher message via [place] [facility])
Impression / Plan
-
PCP: Sierra Hester MD
Cokeman: Jason Calixto MD
.
Impression:
Shortness of breath, multifactorial, improved with diuresis and neb treatment, resolved
� Possibly associated with longstanding COPD with acute volume overload in the setting of recent infection
� Productive cough
� BNP 1100, troponin negative, EKG sinus rhythm without significant ST-T abnormality
Acute on chronic heart failure with preserved ejection fraction, improved
� Echocardiogram 01/24/2024 notes EF of 45 to 50%
Acute diverticulitis, status post hospital admission for IV antibiotic therapy now on oral antibiotic therapy
CAD status post PCI 2006
History of IMI
Hypertension
Hyperlipidemia
COPD
Valvular heart disease
� Moderate to severe (48/20 mmHg, EDUARDO 0.6 cm to)
� Mild to moderate MR, AI
Echo 01/27/2024: Normal LV size and function, EF 45�50 by visual, 50% by Nunn's; mild LVH, mild to moderate MR, mild to moderate AI, moderate to severe , mild TR PASP 29 mmHg
Echo 04/28/2024: Normal LV size, low normal systolic function, 45-50%, mild global hypokinesis, mild-mod MR, mod-sev , mild TR PASP 36 mmHg
CXR 04/28/2024: No acute cardiopulmonary disease
Plan:
Significant improvement following IV diuresis. Off supplemental O2, no evidence of overload on exam
Change to 20 mg PO lasix daily; can DC on PO lasix with BMP/Mg 1 week and follow-up in cardiology office in 1-2 weeks
Treatment for COPD per primary service
Electrolytes, renal function stable
Continue ASA, statin (home Rx)
Start metoprolol succinate 12.5 mg daily, consider additional GDMT agents as OP
Progress Note - Cokeman
Subjective
Date of Service: April 29, 2024
Patient seen and examined. No acute event overnight. Patient resting comfortably in bed denies any chest pain, shortness breath, palpitations or lightheadedness, dizziness, near-syncope, syncope, weakness. Patient with significant improvement
following IV diuresis. Main sinus rhythm on telemetry monitoring. Echocardiogram without significant change.
Objective
Labs:
04/29/24 06:37
04/29/24 06:37
Labs
Hgb 11.4 g/dL (12.0-16.0) L 04/29/24 06:37
Hct 34.7 % (37.0-47.0) L 04/29/24 06:37
Plt Count 194 10^3/uL (130-400) D 04/29/24 06:37
Sodium 136 mmol/L (135-145) 04/29/24 06:37
Potassium 4.3 mmol/L (3.5-5.1) 04/29/24 06:37
BUN 16 mg/dl (7-17) 04/29/24 06:37
Creatinine 0.8 mg/dL (0.6-1.0) 04/29/24 06:37
Glucose 103 mg/dl (70-99) H 04/29/24 06:37
Troponins
04/28/24
05:45
Troponin I < 0.012
Vital Signs and I&O:
Vital Signs
Temp Pulse Resp BP Pulse Ox
98.2 F 83 16 123/63 95
04/29/24 11:51 04/29/24 11:51 04/29/24 11:51 04/29/24 11:51 04/29/24 11:51
Vital Signs
Temp Pulse Resp BP Pulse Ox
98.2 F 83 16 123/63 95
04/29/24 11:51 04/29/24 11:51 04/29/24 11:51 04/29/24 11:51 04/29/24 11:51
Intake & Output
04/27/24 04/28/24 04/29/24 04/30/24
06:59 06:59 06:59 06:59
Intake Total 960 / 960
Balance 960 / 960
Physical Exam
Physical Exam
GENERAL: no acute distress
EYE: sclera anicteric
NECK: Supple, no JVD, no carotid bruit appreciated
ENT: normal nose, moist mucosal membranes
CARDIAC: Regular rate and rhythm, +S1/S2, no murmur, rubs, or gallops
CHEST/PULMONARY: Normal effort, clear no audible wheeze
ABDOMEN: Soft, without focal tenderness or distention
NEUROLOGICAL: Alert and oriented x3
SKIN: Warm and dry, no rash, no edema
PSYCH: Normal and appropriate interaction.
--- NOTE | 2024-04-29 14:50 | CM ---
Initial assessment completed with son via phone
Son reported that his mother lives in a multilevel home; patient's 2 daughters live with her and are her primary caregivers; patient's bedroom and bath on the 1st floor
Son reported that patient is alert oriented, independent with her personal care; ambulates with a rolling walker or a cane; she does not like to get in the tub and takes sponge baths; daughters assist with ADLS
No SNF or Home Health utilization history
Explained to son that PT recommended SNF; son declined on behalf of patient
Home Health services offered; son declined on behalf of patient
Daughters will transport home
Plan: Discharge to home today; services refused
[2024-04-29] MEDS: LIPITOR 20 MG PO (15:50)
[2024-04-29 15:59] VITALS: BP 123/69
== END 2024-04-29 16:33 | disposition home or self-care (01) | DRG 291 ==
LOC: 3 WEST ACU 09:58
PROVIDERS: Emergency Medicine; Hospitalist; ADMITTING PHYSICIAN Internal Medicine; CONSULT PHYSICIAN Internal Medicine Cardiovascular Disease; EMERGENCY PHYSICIAN Student in an Organized Health Care Education/Training Program; FAMILY PHYSICIAN Family Medicine
DX: I11.0 Hypertensive heart disease with heart failure (principal); I50.33 Acute on chronic diastolic (congestive) heart failure; K57.32 Diverticulitis of large intestine without perforation or abscess without bleeding; I25.10 Atherosclerotic heart disease of native coronary artery without angina pectoris; I25.2 Old myocardial infarction; E78.00 Pure hypercholesterolemia, unspecified; F41.9 Anxiety disorder, unspecified; J44.9 Chronic obstructive pulmonary disease, unspecified; K21.9 Gastro-esophageal reflux disease without esophagitis; M79.7 Fibromyalgia; I08.0 Rheumatic disorders of both mitral and aortic valves; R09.02 Hypoxemia; D64.9 Anemia, unspecified; Z11.52 Encounter for screening for COVID-19; Z87.891 Personal history of nicotine dependence; Z88.5 Allergy status to narcotic agent; Z79.899 Other long term (current) drug therapy; Z95.5 Presence of coronary angioplasty implant and graft; Z91.041 Radiographic dye allergy status
CPT/HCPCS: 93308; 71045; 80048; 80053; 82805; 83735; 83880; 84484; 85025; 85027; 87502; 87811; 93005; 93321; 93325; 97163; 99285